=== PATIENT | female | born 1950 | race Caucasian/White ===

== ENCOUNTER 2016-11-24 15:26 | Inpatient (IN) ==
[2016-11-24] MEDS ORDERED: ASPIRIN 325 MG TABLET PO STA (16:01)
[2016-11-24] MEDS ORDERED: MORPHINE 2 MG/1 ML SYRINGE IV STA (16:01)
[2016-11-24] MEDS ORDERED: ONDANSETRON 4 MG/2 ML VIAL IV STA (16:01)
[2016-11-24] MEDS ORDERED: ALUM/MAG/SIMETH/LIDO VISC 1:1 30 ML BOTTLE PO STA (16:01)
[2016-11-24] MEDS ORDERED: NITROGLYCERIN 2% OINT 1 INCH/GM PACK TOP STA (16:01)
--- NOTE | 2016-11-24 16:04 | EKG Report ---
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
--- NOTE | 2016-11-24 16:05 | Emergency Department Note ---
Amador Jaime Hilary, am scribing for, and in the presence of, Richie Bolden MD 15:57. Yuan Jaime Charles R, MD, personally performed the services described in this documentation, ascribed by Sima English in my presence, and it is both accurate and complete [id number] . Arrival - Arrival Chief Complaint: Chest Pain ED Nursing Triage Note: pt started having co last night. pain going into jaw and arms. Mode of Arrival: Stretcher Limitations: No Limitations Source: Patient, RN Notes Reviewed Time Seen by Provider: 11/24/16 15:47 - History of Present Illness HPI Narrative: Pt is a 65 y/o female brought to the ED via EMS for c/o chest pain which onset 2 weeks ago. Pt states that the pain is intermittent and has been getting worse the past few days, she says it kept her up all night and caused her to not sleep well. Pt confirms chest pain that radiates up "through her arms" and leaves a pain in her arms, tired, fatigue, reflux and smokes but denies DM. No other complaints or problems stated in the ED. Onset (ago): week(s) Consistency: now resolved Quality: stabbing, other (Pressure) Date of Last Menstrual Period: menopause Review of System - Review of System 12 point system: reviewed and no additional remarkable complaints except as stated - Review of System Constitutional: Absent: fever Respiratory: Present: respiratory distress Cardiovascular: Present: chest pain, dyspnea on exertion Neurological: Present: other (fatigue) Medical,Surgical,& Family Hx - Medical History Cardio: History of: Hypertension Respiratory: History of: Asthma, COPD Gastrointestinal: History of: GERD - Social History Smoking Status: Smoker, status unknown Frequency of Alcohol Use: None Type of Drug Use: None Exam Vital Signs: Vital Signs Temperature 97.6 F 11/24/16 15:32 Pulse Rate 95 H 11/24/16 15:32 Respiratory Rate 18 11/24/16 15:32 Blood Pressure 115/78 11/24/16 15:32 O2 Sat by Pulse Oximetry 97 11/24/16 15:32 - General General appearance: alert, in no apparent distress - Head Head exam: Present: atraumatic, normocephalic - Eye Eye exam: Present: normal appearance, PERRL, EOMI - ENT ENT exam: Present: mucous membranes moist, TM's normal bilaterally. Absent: mucous membranes dry - Neck Neck exam: Present: full ROM, trachea midline. Absent: tenderness - Chest Chest inspection: Present: symmetric chest wall rise. Absent: tenderness - Respiratory Respiratory exam: Present: rhonchi - Cardiovascular Cardiovascular exam: Present: normal rhythm, clicks (2/6 systalic injection) - Abdominal Exam Abdominal exam: Present: soft. Absent: distention - Extremities Exam Extremities exam: Present: full ROM, pedal edema. Absent: tenderness - Back Exam Back exam: Present: full ROM. Absent: tenderness - Neurological Exam Neurological exam: Present: alert, oriented X3, CN II-XII intact. Absent: motor sensory deficit - Psychiatric Psychiatric exam: Present: normal affect, normal mood - Skin Skin exam: Present: warm, dry, intact, normal color. Absent: rash Course - Consultations Consultation #1: Hospitalist will admit patient Time: 16:04 Results - Labs Lab Results: I have reviewed the patients labs Labs: Labs from previous facility reviewed Disposition Clinical Impression: Chest pain, Borderline elevated troponin Case discussed with: patient Disposition: Still a Patient Condition: Stable Time of Disposition: 16:05
--- NOTE | 2016-11-24 16:15 | XRay Report ---
XR chest 1V portable Indication: Chest pain Comparison: Chest x-ray 11/24/2016 Technique: Portable AP chest was performed. Findings: The heart size appears within normal limits. Atherosclerotic calcification of the aortic knob appears stable. The mediastinal contour and hilar structures demonstrate no significant abnormalities. Lungs demonstrate nonspecific coarsened interstitium stable compared to previous study. Bones and soft tissues demonstrate no evidence of acute pathology. Postoperative changes from prior right subacromial decompression are suggested. Impression: 1. Nonspecific coarsened interstitial markings are stable compared to the comparison study performed earlier this morning. No active process is clearly demonstrated. 11/24/2016 4:11 PM PROCEDURE INTERPRETED AT [facility] DEPARTMENT OF RADIOLOGY Final Report Signed by: Dr. Hilton Narvaez
--- NOTE | 2016-11-24 16:42 | Hospitalist History & Physical ---
Assessment and Plan - Time spent with patient Time spent with patient: Greater than 30 minutes (1) Elevated troponin Status: Acute Assessment and plan: 65-year-old white female with history of COPD, hypertension, current everyday smoker transfer from [facility] with chest pain, abnormal EKG and elevated troponins. Patient is being admitted to the hospitalist service and Dr. Montano we will seen and examined patient. We will get a cardiology consult and serial troponins. Recheck an EKG in the morning. Monitor patient' s pain. Further recommendations to follow. Current Visit: Yes (2) COPD (chronic obstructive pulmonary disease) Status: Acute Assessment and plan: Patient is a current everyday smoker of a little more than 1 pack per day. Patient only takes Singulair for her COPD. She states her [employer] started her on an inhaler but is not sure what it is. She just got it filled and has not had a chance to start it yet. Current Visit: Yes (3) Sciatic nerve pain Status: Acute Assessment and plan: Patient has had sciatic nerve pain for over 2 weeks now. Her family doctor is treating her with muscle relaxers and Neurontin. Patient does not like the way these medicines make her feel. We will go ahead and hold these for now since patient is not complaining of any sciatic pain at this point in time. Current Visit: Yes (4) Tobacco abuse Status: Acute Assessment and plan: Patient is a current everyday smoker of over 1 pack per day. She has been doing this for over 30 years. Current Visit: Yes (5) Chest pain Status: Acute Assessment and plan: patient has had intermittent chest pain with radiation to the throat and arms that is increasing in severity and number. She does have an abnormal EKG with elevated troponins initially. She will be admitted for chest pain rule out. Cardiology will be consulted, serial enzymes and EKG in the morning. Current Visit: Yes History of Present Illness Chief complaint: chest pain History of present illness: Ms. Pope is a 65 year old female w history of COPD, 1ppd smoker x30y, HTN transferred from [facility] w CP and elevated troponin. pt states for the last 2 wks she has had intermittent chest pain and burning that radiates to her throat and out to both arms. she states the pain stays in her arms when tums will alleviate the chest burning. it was associated w some nausea but no vomiting. she denies MANSFIELD, blurred vision, dysphagia, SOB, abdominal pain, constipation, dysuria or LE edema. she has been treated for the last few wks for severe sciatica w neurontin and muscle relaxers that she thinks is really not helping. she thought the chest pain was from her gerd. it was worsening and becoming more frequent so she went to her [employer] who sent her to ED in [place]. her EKG from there shows mild ST elevation w tachycardia and her trop was 0.8. all her labs and studies at [facility] are pending. pts case was discussed w dr chairez the ED physician and dr montano the hospitalist and it was agreed for pt to be admitted in obs for chest pain rule out. 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 No tremulousness. Head: Normocephalic, atraumatic. Ears, Nose and Throat System: No evidence of Otitis or Mastoiditis. No epistaxis or discharge, poor dentition Eyes System: Pupils equal, round, and reactive. Extraocular muscles intact. Neck: Supple, without adenopathy, No jugular venous distention. No thyromegaly, neck mass, or prior surgery apparent. Respiratory System: Chest clear to auscultation. Cardiovascular System: Heart with regular rate and rhythm. No murmur. GI System: Abdomen soft, nontender. Normo active bowel sounds present. Musculoskeletal System: limbs with no pedal edema. Full distal pulses. Neurological System: No discernable sensory deficit. No aphasia Psychiatric System: Conversation is rational Results - Labs Lab Results: I have reviewed the past 24 hour labs (Labs from [facility] were reviewed) - EKG EKG shows: tachycardia (Mild ST elevation)
[2016-11-24] MEDS ORDERED: ONDANSETRON 4 MG/2 ML VIAL ONE (16:52)
[2016-11-24] MEDS ORDERED: ASPIRIN 325 MG TABLET ONE (16:52)
[2016-11-24] MEDS ORDERED: MORPHINE 2 MG/1 ML SYRINGE ONE (16:52)
[2016-11-24] MEDS ORDERED: NITROGLYCERIN 2% OINT 1 INCH/GM PACK TOP ONE (16:52)
[2016-11-24] MEDS ORDERED: MORPHINE 2 MG/1 ML SYRINGE IV PRN (16:53)
[2016-11-24] MEDS ORDERED: ONDANSETRON 4 MG/2 ML VIAL IV PRN (16:53)
[2016-11-24] MEDS ORDERED: DOCUSATE SODIUM 100 MG CAPSULE PO PRN (16:53)
[2016-11-24] MEDS ORDERED: ACETAMINOPHEN 325 MG TABLET PO PRN (16:53)
[2016-11-24] MEDS ORDERED: NICOTINE 21 MG/24 HR PATCH TRANSDERM PRN (16:53)
[2016-11-24] MEDS ORDERED: ALUM/MAG/SIMETH/LIDO VISC 1:1 30 ML BOTTLE PO ONE (16:53)
[2016-11-24] MEDS ORDERED: ZALEPLON 5 MG CAPSULE PO PRN (16:53)
[2016-11-24] MEDS ORDERED: guaiFENesin/DM ER 600-30 MG TABLET PO PRN (16:53)
[2016-11-24] MEDS ORDERED: diphenhydrAMINE CAP 25 MG CAPSULE PO PRN (16:53)
[2016-11-24 17:31] LABS: Basophils % 0.2 % (0.0-0.8); Eosinophils # 0.1 10*3/uL (0.0-0.87); Eosinophils % 1.2 % (0.00-10.9); Hematocrit 39.3 VOL% (35.7-47.0); Hemoglobin 13.1 GM/DL (12.0-16.0); Immature Granulocytes % 0.4 %; Immature Granulocytes Absolute 0.03 #; Lymphocytes # 1.4 10*3/uL (1.4-4.0); Mean Corpuscular HGB Conc 33.3 GM/DL (32-36); Mean Corpuscular Hemoglobin 31 PG (27-34); Monocytes # 0.6 10*3/uL (0.11-0.8); Monocytes % 7.7 % (1.7-12.7); Neutrophils % 73.5 % (38.7-73.9); Platelet Count 109 T/CUMM (130-400); Red Blood Count 4.18 MC/CUMM (3.8-5.5); Red Cell Distribution Width 13.4 % (9.3-17.3); White Blood Count 8.2 T/CUMM (4-12)
[2016-11-24 17:45] LABS: INR 1.2; PT Patient Result 13.1 SECS
[2016-11-24 17:51] LABS: Albumin 3.9 G/DL (3.4-5.0); Bilirubin,Total 1.9 MG/DL (0.2-1.0); Calcium 9.2 MG/DL (8.5-10.1); Magnesium 2.2 MG/DL (1.8-2.4); Osmolality,Calculated 278.4 MOS/KG (273-304); Potassium 3.4 MMOL/L (3.5-5.1); Risk Ratio 4.33; Total Protein 7.4 G/DL (6.4-8.3); VLDL CHOLESTEROL 23.2 MG/DL
[2016-11-24] MEDS: SODIUM CHLORIDE 0.9% 1,000 ML IV SCH (18:57)
[2016-11-24] MEDS: PANTOPRAZOLE 40 MG TABLET PO SCH (18:57)
[2016-11-24] MEDS ORDERED: ENOXAPARIN 40 MG/0.4 ML SYRINGE SUBCUT SCH (21:00)
[2016-11-24] MEDS: MONTELUKAST 10 MG TABLET PO SCH (21:37)
[2016-11-25] MEDS: SODIUM CHLORIDE 0.9% 1,000 ML IV SCH (02:43)
[2016-11-25 04:49] LABS: Basophils % 0.4 % (0.0-0.8); Eosinophils # 0.2 10*3/uL (0.0-0.87); Eosinophils % 3.1 % (0.00-10.9); Hematocrit 36.3 VOL% (35.7-47.0); Hemoglobin 11.7 GM/DL (12.0-16.0); Immature Granulocytes % 0.6 %; Immature Granulocytes Absolute 0.03 #; Lymphocytes # 1.2 10*3/uL (1.4-4.0); Lymphocytes % 23.8 % (21.3-54.2); Mean Corpuscular HGB Conc 32.2 GM/DL (32-36); Mean Corpuscular Hemoglobin 30 PG (27-34); Mean Platelet Volume 12.6 FL (9.6-12.0); Monocytes # 0.5 10*3/uL (0.11-0.8); Monocytes % 9.8 % (1.7-12.7); Neutrophils # 3.3 10*3/uL (1.4-7.4); Neutrophils % 62.3 % (38.7-73.9); Platelet Count 96 T/CUMM (130-400); Red Blood Count 3.86 MC/CUMM (3.8-5.5); Red Cell Distribution Width 13.5 % (9.3-17.3); White Blood Count 5.2 T/CUMM (4-12)
[2016-11-25 05:21] LABS: Band Neutrophils 1 % (0-10); Eosinophils 2 % (0-10); Lymphocytes 25 % (20-55); Segmented Neutrophils 67 % (50-85); Total Cells Counted 100
[2016-11-25 05:22] LABS: Hypochromasia Slight; Platelet Estimate Decreased
[2016-11-25 05:23] LABS: Calcium 8.5 MG/DL (8.5-10.1); Magnesium 2.2 MG/DL (1.8-2.4); Osmolality,Calculated 287.7 MOS/KG (273-304); Potassium 3.8 MMOL/L (3.5-5.1)
--- NOTE | 2016-11-25 06:59 | EKG Report ---
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
[2016-11-25] MEDS ORDERED: ASPIRIN EC 325 MG TABLET PO SCH (09:00)
--- NOTE | 2016-11-25 09:25 | Cardiology Consult Note ---
<Aleja Mcrae E - Last Filed: 11/25/16 09:22> Assessment and Plan - Time spent with patient Time spent with patient: Greater than 30 minutes (Due to assessment, plan, and documentation) Time spent discussing smoking cessation with patient: 3 to 10 minutes (1) Chest pain Status: Acute Assessment and plan: Her pain is suspicious for angina but also has GI component. Given her risk factors and presentation, after discussing with Dr. Draper, we will ask Dr. Martin to perform left heart catheterization for further evaluation. Current Visit: Yes (2) Elevated troponin Status: Acute Assessment and plan: Peak troponin 1.5 with elevated CK-MB of 12.8 at [facility]. I have discussed her with Dr. Draper and we will hold her NPO and ask Dr. Martin to perform left heart catheterization. Current Visit: Yes (3) Family history of premature CAD Status: Chronic Assessment and plan: She has a strong family history of CAD including a mother who had an UT at age 48 and after CABG, dad had an UT at age 65 required CABG, and a little brother who had an UT in his 40s. Current Visit: Yes (4) Hypertension Status: Chronic Assessment and plan: Currently well controlled. We will continue to monitor and adjust as needed. Current Visit: Yes (5) GERD (gastroesophageal reflux disease) Status: Chronic Assessment and plan: Continue Protonix. Current Visit: Yes (6) Asthma Status: Chronic Assessment and plan: We have started her on Xopenex breathing treatments. Current Visit: Yes (7) Diverticulosis Status: Chronic Assessment and plan: Has previously been seen by GI Dr. Prasad in [place], [place]. reports she has recently undergone 2 colonoscopies to remove precancerous polyps. Current Visit: Yes (8) COPD (chronic obstructive pulmonary disease) Status: Chronic Assessment and plan: Currently has audible wheezes. We will start her on Xopenex breathing treatments every 4 hours. IV fluids have been discontinued at this time. Current Visit: Yes (9) Sciatic nerve pain Status: Acute Assessment and plan: Denies any sciatic pain presently. Current Visit: Yes (10) Tobacco abuse Status: Chronic Assessment and plan: Has moved 1-2 packs per day for the last 46 years. Reports she has previously tried oral medications which "made her crazy." Patient is agreeable to trying nicotine patches to help her quit smoking. 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 Pope is a 65 year old female with a history of hypertension, COPD , asthma, gastroesophageal reflux disease, diverticulitis, tobacco use. She has risk factors significant for: Hypertension, family history of premature coronary artery disease, tobacco abuse, sedentary lifestyle. She is a 1-2 pack per day smoker and has been smoking for the last 4-6 years. She tells me she has tried oral medications to stop smoking in the past but these "made her crazy." She is agreeable to using nicotine patches to try and cut back smoking. She has a strong family history of CAD including a mother who had an UT at age 48 and after CABG, dad had an UT at age 65 required CABG, and a little brother who had an UT in his 40s. She is also recently been undergoing treatment for sciatic pain but tells me the medication she was taking for this gave her GI upset and indigestion. She was transferred to our facility yesterday from [facility] after presenting with chest pain ongoing for the last 2 weeks. She was found to have an elevated troponin of 0.817 with a CK-MB of 12.8 at [facility]. Upon arrival to our facility, her troponin was noted to be 1.540. EKG shows normal sinus rhythm with nonspecific ST-T-wave abnormality. She reports she has had pain that has felt like acid reflux the last couple weeks. She reports she has had neck and jaw pain associated with this. She describes this as a burning sensation. She reports it is immediately relieved by Tums. However, she has also noticed a pressure in her chest that remains even after her reflux pain has gone. She reports this pain is occasionally a 5 out of 10 and occasionally 10 out of 10. She does have some associated shortness of breath, nausea, and palpitations when she experiences this pain. She can identify no exacerbating or alleviating factors with chest pressure. She tells me it does not wax or wane and usually lasts a couple of hours at a time. She tells me she has also had some bilateral shoulder blade pain that she has noticed off and on for the last couple of months. She denies any diaphoresis, vomiting, dizziness, lightheadedness, syncope. She also complains of being easily fatigued during the past several weeks and reports her wheezing has worsened lately. 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 She reports she has had at least 2 stress tests in the past and one heart catheterization. She does not think she required any balloons or stents. Her heart cath was done at [facility] in [place] over 10 years ago. She also reports a long history of melena and tells me she has recently had 2 colonoscopies to remove precancerous polyps by a Dr. Prasad and [place]. Dr. Draper to follow with further plan and addendum. CC: Nuvia Petty MD - Home Medications and Allergies Home Medications: Home Medications Medication Instructions Recorded Confirmed Type Gabapentin 100 mg PO DAILY 11/24/16 11/24/16 History Montelukast Tab [Singulair Tab] 10 mg PO BEDTIME 11/24/16 11/24/16 History Omeprazole [Prilosec] 20 mg PO DAILY 11/24/16 11/24/16 History dilTIAZem HCl [Diltiazem ER (24 240 mg PO DAILY 11/24/16 11/24/16 History hr)] Allergies/Adverse Reactions: Allergies Allergy/AdvReac Type Severity Reaction Status Date / Time No Known Allergies Allergy Verified 11/24/16 18:04 Review of systems: - Constitutional: Present: fatigue, As per HPI. Absent: anorexia, chills, daytime sleepiness, excessive sweating, fever(s), frequent falls, headache(s), increased appetite, lethargy, malaise, night sweats, stops breathing during sleep, weakness, weight gain, weight loss. - EENT Eyes: Present: As per HPI. Absent: blurry vision, diplopia, loss of vision Ears: Present: As per HPI. Absent: decreased hearing, ear discharge, ear pain Nose, mouth and throat: Present: neck pain, As per HPI. Absent: dysphagia, epistaxis, headache(s), hoarseness, lip swelling, nasal congestion, neck mass, sinus pressure, sore throat, throat swelling, tongue swelling, vertigo - Cardiovascular: Present: chest pain at rest, dyspnea, radiating jaw, neck or arm pain, palpitations, as per HPI. Absent: chest pain with activity, dyspnea on exertion, edema, claudication, diaphoresis, lightheadedness, orthopnea, PND - Respiratory: Present: dyspnea, wheezing, as per HPI. Absent: dyspnea on exertion, cough, hemoptysis, snoring, pain on inspiration - Gastrointestinal: Present: constipation, diarrhea, heartburn, melena, nausea, As per HPI. Absent: abdominal pain, bloating, change in bowel habits, hematemesis, hematochezia, loose stools, vomiting - Genitourinary: Present: As per HPI. Absent: difficulty urinating, dysuria, flank pain, hematuria, nocturia, urinary frequency, urinary incontinence - Musculoskeletal: Present: Sciatic pain, as per HPI. Absent: arthralgias, back pain, joint swelling, limited range of motion, muscle cramps, muscle weakness, myalgias - Neurological: Present: As per HPI. Absent: abnormal gait, abnormal speech, behavioral changes, confusion, convulsions, disequilibrium, dizziness, focal weakness, frequent falls, headache(s), memory loss, numbness, paresthesias, radicular pain, syncope, tremor(s) - Psychiatric: Present: As per HPI. Absent: anxiety, confusion, depression, panic attacks - Endocrine: Present: fatigue, As per HPI. Absent: cold intolerance, heat intolerance, polydipsia, polyphagia - Hematologic/Lymphatic: Present: As per HPI. Absent: easy bleeding, easy bruising, lymphadenopathy Medical,Surgical,& Family Hx - Medical History Cardio: History of: Hypertension HEENT: History of: Ear Problem Respiratory: History of: Asthma, COPD Renal: No history of: Renal Problems Gastrointestinal: History of: Diverticulitis/ Diverticulosis, GERD, Polyps, GI Problems Musculoskeletal: History of: Back/Neck Problems (back surgery), Musculoskeletal Problems (Sciatic pain) Other: History of: Cancer ([place]) - Surgical History Cardiac Surgeries: Patient Denies: Cardiac Catheterization, Cardiac Surgery Thoracic Surgeries: Patient denies;: Organ Transplant Neurologic Surgeries: Patient denies: Neurologic Surgery HEENT Surgeries: Patient denies: Eye Surgery, Tonsilectomy & Adenoidectomy Abdominal Surgeries: Surgical HX of: Abdominal Surgery - Family History Family History: Reports;: Family Cancer (colon cancer- dad), Family Diabetes, Family Heart Disease, Family Hypertension (mother, father, brother), Family Stroke (grandmother) Denies;: Family Psychiatric Problems, Additional Family History - Social History Smoking Status: Current every day smoker Have you smoked in the last 12 months: Yes Time spent discussing smoking cessation with patient: 3 to 10 minutes Frequency of Alcohol Use: None Type of Drug Use: None Marital Status: Single Lives With:: Alone Functional capacity: independent ambulation Physical Examination Vital Signs Temp Pulse Resp BP Pulse Ox 97.6 F 95 H 18 115/78 97 11/24/16 15:32 11/24/16 15:32 11/24/16 15:32 11/24/16 15:32 11/24/16 15:32 Other: General appearance: Pleasant and cooperative. Normal weight, no acute distress. - Head Head exam: Present: normal inspection, normocephalic, atraumatic. Absent: hematoma, laceration - Eye Eye exam: Present: EOMI. Absent: conjunctival injection, nystagmus, periorbital swelling, scleral icterus, laceration to eyelids Pupils: Present: PERRL. Absent: constricted, dilated, fixed, irregular, unequal - ENT ENT exam: Present: normal exam, normal external ear exam - Neck Neck exam: Present: normal inspection. Absent: lymphadenopathy, meningismus, tenderness, thyromegaly - Respiratory Respiratory exam: Present: Audible wheezing with bibasilar crackles posteriorly. Absent: accessory muscle use, chest wall tenderness - Cardiovascular Cardiovascular exam: Present: regular rate and rhythm. Absent: carotid bruit, gallop, JVD, rubs, murmur - GI/Abdominal GI/Abdominal exam: Present: normal bowel sounds, soft. Absent: distended, firm , guarding, hernia, mass, tenderness, rebound. - Extremities Exam Extremities exam: Present: normal inspection, normal capillary refill. Upper extremity pulses 2+. Lower extremity pulses 2+. Absent: calf tenderness, edema - Back Exam Back exam: Present: normal inspection. Absent: muscle spasm, vertebral tenderness - Neurological Exam Neurological exam: Present: alert, oriented X3, grossly intact without resting or essential tremor - Psychiatric Psychiatric exam: Present: normal affect, normal mood - Skin Skin exam: Present: normal color, warm, dry, intact. Absent: cyanosis, diaphoretic, rash, urticaria Result/EKG - Labs CBC & BMP: 11/25/16 03:59 11/25/16 03:59 Lab Results: I have reviewed the past 24 hour labs Labs: Laboratory Results - last 24 hr 11/24/16 11/24/16 11/24/16 17:21 17:21 17:21 WBC RBC Hgb Hct MCV MCH MCHC RDW Plt Count MPV Neut % (Auto) Lymph % (Auto) Fountain % (Auto) Eos % (Auto) Baso % (Auto) Neut # (Auto) Lymph # (Auto) Fountain # (Auto) Eos # (Auto) Baso # (Auto) Total Counted Immature Gran % Nucleated RBC % Immature Gran # Segmented Neutrophils Band Neutrophils Lymphocytes Monocytes Eosinophils Nucleated RBCs # Platelet Estimate Hypochromasia INR PT Patient/Control Mix D-Dimer, Quantitative <= 0.5 Sodium 140 Potassium 3.4 L Chloride 106 Carbon Dioxide 25 Anion Gap 12.4 BUN 11 Creatinine 0.80 GFR Calculation 79 BUN/Creatinine Ratio 13.00 Glucose 109 H Calculated Osmolality 278.4 Calcium 9.2 Magnesium 2.2 Total Bilirubin 1.90 H AST 30 ALT 17 Alkaline Phosphatase 114 Troponin I B-Natriuretic Peptide 822 H Total Protein 7.4 Albumin 3.9 Globulin 3.5 Albumin/Globulin Ratio 1.1 Triglycerides 116 Cholesterol 169 LDL Cholesterol 123.0 VLDL Cholesterol 23.2 HDL Cholesterol 39 L Heart Disease Risk Ratio 4.33 Lipase 78.0 11/24/16 11/24/16 11/24/16 17:21 17:21 17:21 WBC 8.2 RBC 4.18 Hgb 13.1 Hct 39.3 MCV 94.0 MCH 31 MCHC 33.3 RDW 13.4 Plt Count 109 L MPV 12.0 Neut % (Auto) 73.5 Lymph % (Auto) 17.0 L Fountain % (Auto) 7.7 Eos % (Auto) 1.2 Baso % (Auto) 0.2 Neut # (Auto) 6.0 Lymph # (Auto) 1.4 Fountain # (Auto) 0.6 Eos # (Auto) 0.1 Baso # (Auto) 0.0 Total Counted Immature Gran % 0.4 Nucleated RBC % 0.0 Immature Gran # 0.03 Segmented Neutrophils Band Neutrophils Lymphocytes Monocytes Eosinophils Nucleated RBCs # 0.00 Platelet Estimate Hypochromasia INR 1.2 PT Patient/Control Mix 13.1 D-Dimer, Quantitative Sodium Potassium Chloride Carbon Dioxide Anion Gap BUN Creatinine GFR Calculation BUN/Creatinine Ratio Glucose Calculated Osmolality Calcium Magnesium Total Bilirubin AST ALT Alkaline Phosphatase Troponin I 1.540 H B-Natriuretic Peptide Total Protein Albumin Globulin Albumin/Globulin Ratio Triglycerides Cholesterol LDL Cholesterol VLDL Cholesterol HDL Cholesterol Heart Disease Risk Ratio Lipase 11/24/16 11/24/16 11/25/16 21:06 23:49 03:59 WBC 5.2 D RBC 3.86 Hgb 11.7 L Hct 36.3 MCV 94.0 MCH 30 MCHC 32.2 RDW 13.5 Plt Count 96 L MPV 12.6 H Neut % (Auto) 62.3 Lymph % (Auto) 23.8 Fountain % (Auto) 9.8 Eos % (Auto) 3.1 Baso % (Auto) 0.4 Neut # (Auto) 3.3 Lymph # (Auto) 1.2 L Fountain # (Auto) 0.5 Eos # (Auto) 0.2 Baso # (Auto) 0.0 Total Counted 100 Immature Gran % 0.6 Nucleated RBC % 0.0 Immature Gran # 0.03 Segmented Neutrophils 67 Band Neutrophils 1 Lymphocytes 25 Monocytes 5 Eosinophils 2 Nucleated RBCs # 0.00 Platelet Estimate Decreased Hypochromasia Slight INR PT Patient/Control Mix D-Dimer, Quantitative Sodium Potassium Chloride Carbon Dioxide Anion Gap BUN Creatinine GFR Calculation BUN/Creatinine Ratio Glucose Calculated Osmolality Calcium Magnesium Total Bilirubin AST ALT Alkaline Phosphatase Troponin I 0.961 H D 0.954 H B-Natriuretic Peptide Total Protein Albumin Globulin Albumin/Globulin Ratio Triglycerides Cholesterol LDL Cholesterol VLDL Cholesterol HDL Cholesterol Heart Disease Risk Ratio Lipase 11/25/16 03:59 WBC RBC Hgb Hct MCV MCH MCHC RDW Plt Count MPV Neut % (Auto) Lymph % (Auto) Fountain % (Auto) Eos % (Auto) Baso % (Auto) Neut # (Auto) Lymph # (Auto) Fountain # (Auto) Eos # (Auto) Baso # (Auto) Total Counted Immature Gran % Nucleated RBC % Immature Gran # Segmented Neutrophils Band Neutrophils Lymphocytes Monocytes Eosinophils Nucleated RBCs # Platelet Estimate Hypochromasia INR PT Patient/Control Mix D-Dimer, Quantitative Sodium 145 Potassium 3.8 Chloride 110 H Carbon Dioxide 24 Anion Gap 14.8 BUN 13 Creatinine 0.70 GFR Calculation 93 BUN/Creatinine Ratio 18.00 Glucose 104 Calculated Osmolality 287.7 Calcium 8.5 Magnesium 2.2 Total Bilirubin AST ALT Alkaline Phosphatase Troponin I B-Natriuretic Peptide Total Protein Albumin Globulin Albumin/Globulin Ratio Triglycerides Cholesterol LDL Cholesterol VLDL Cholesterol HDL Cholesterol Heart Disease Risk Ratio Lipase - EKG EKG results: interpreted by me, sinus rhythm (with ST-T wave abnormality) <Andrei Draper - Last Filed: 11/25/16 10:05> History of Present Illness - Consult Narrative History of present illness: Patient is personally interviewed and examined by me and chart reviewed. I discussed the case with Bryan Mcrae NP. I agree with the history and examination as well as assessment. In review and in addition Ms. Pope is a 65 year old female he is having anginal type symptomatology with elevated troponin. Her ECG does not reveal acute ischemic changes. She has multiple risk factors for coronary artery disease. She is a heavy smoker and is has shortness of breath. She is wheezing some with a few crackles. Her BNP level was elevated. I think her primary focus at this time must be her cardiac ischemic issues. She has sinus tachycardia and is noted wheezing on exam which I think indicates that she has underlying lung disease. Cannot rule out some element of heart failure with elevated BNP. I think our first approach must be to cardiac catheterization on discussed this procedure with the patient being indications as well as how the procedure be carried out in the risk. I discussed cardiac catheterization and percutaneous coronary intervention with the patient and available family. I reviewed with them the indications for the procedure and the basis of how the procedure would be carried out. I also reviewed with them the risk of the procedure which include but not necessarily limited to access site bleeding, bruising, pain, swelling or vascular injury that may require emergency vascular surgery, blood transfusion, or thrombin injection. Also discussed the possibility of stroke, myocardial infarction, arrhythmia which may require electrocardioversion, and the possibility of dye reaction that would require medical therapy. Also discussed the possibility of coronary artery injury, ruptured, closure or perforation that may require emergency bypass surgery. We also discussed the possibility of from a major complication. They voice understanding and agree to proceed. We will notify Dr. Duran who is interventional is this week. We'll also start the patient also nebulized therapies with Xopenex and avoid those meds that may exacerbate her heart rates. She has had some sinus tachycardia. Beta specific also start the patient on a beta specific beta jacob. CC: Nuvia Petty MD Physical Examination Vital Signs Temp Pulse Resp BP Pulse Ox 97.6 F 95 H 18 115/78 97 11/24/16 15:32 11/24/16 15:32 11/24/16 15:32 11/24/16 15:32 11/24/16 15:32 Result/EKG - Labs CBC & BMP: 11/25/16 03:59 11/25/16 03:59 Labs: Laboratory Results - last 24 hr 11/24/16 11/24/16 11/24/16 17:21 17:21 17:21 WBC RBC Hgb Hct MCV MCH MCHC RDW Plt Count MPV Neut % (Auto) Lymph % (Auto) Fountain % (Auto) Eos % (Auto) Baso % (Auto) Neut # (Auto) Lymph # (Auto) Fountain # (Auto) Eos # (Auto) Baso # (Auto) Total Counted Immature Gran % Nucleated RBC % Immature Gran # Segmented Neutrophils Band Neutrophils Lymphocytes Monocytes Eosinophils Nucleated RBCs # Platelet Estimate Hypochromasia INR PT Patient/Control Mix D-Dimer, Quantitative <= 0.5 Sodium 140 Potassium 3.4 L Chloride 106 Carbon Dioxide 25 Anion Gap 12.4 BUN 11 Creatinine 0.80 GFR Calculation 79 BUN/Creatinine Ratio 13.00 Glucose 109 H Calculated Osmolality 278.4 Calcium 9.2 Magnesium 2.2 Total Bilirubin 1.90 H AST 30 ALT 17 Alkaline Phosphatase 114 Troponin I B-Natriuretic Peptide 822 H Total Protein 7.4 Albumin 3.9 Globulin 3.5 Albumin/Globulin Ratio 1.1 Triglycerides 116 Cholesterol 169 LDL Cholesterol 123.0 VLDL Cholesterol 23.2 HDL Cholesterol 39 L Heart Disease Risk Ratio 4.33 Lipase 78.0 11/24/16 11/24/16 11/24/16 17:21 17:21 17:21 WBC 8.2 RBC 4.18 Hgb 13.1 Hct 39.3 MCV 94.0 MCH 31 MCHC 33.3 RDW 13.4 Plt Count 109 L MPV 12.0 Neut % (Auto) 73.5 Lymph % (Auto) 17.0 L Fountain % (Auto) 7.7 Eos % (Auto) 1.2 Baso % (Auto) 0.2 Neut # (Auto) 6.0 Lymph # (Auto) 1.4 Fountain # (Auto) 0.6 Eos # (Auto) 0.1 Baso # (Auto) 0.0 Total Counted Immature Gran % 0.4 Nucleated RBC % 0.0 Immature Gran # 0.03 Segmented Neutrophils Band Neutrophils Lymphocytes Monocytes Eosinophils Nucleated RBCs # 0.00 Platelet Estimate Hypochromasia INR 1.2 PT Patient/Control Mix 13.1 D-Dimer, Quantitative Sodium Potassium Chloride Carbon Dioxide Anion Gap BUN Creatinine GFR Calculation BUN/Creatinine Ratio Glucose Calculated Osmolality Calcium Magnesium Total Bilirubin AST ALT Alkaline Phosphatase Troponin I 1.540 H B-Natriuretic Peptide Total Protein Albumin Globulin Albumin/Globulin Ratio Triglycerides Cholesterol LDL Cholesterol VLDL Cholesterol HDL Cholesterol Heart Disease Risk Ratio Lipase 11/24/16 11/24/16 11/25/16 21:06 23:49 03:59 WBC 5.2 D RBC 3.86 Hgb 11.7 L Hct 36.3 MCV 94.0 MCH 30 MCHC 32.2 RDW 13.5 Plt Count 96 L MPV 12.6 H Neut % (Auto) 62.3 Lymph % (Auto) 23.8 Fountain % (Auto) 9.8 Eos % (Auto) 3.1 Baso % (Auto) 0.4 Neut # (Auto) 3.3 Lymph # (Auto) 1.2 L [place]ountain # (Auto) 0.5 Eos # (Auto) 0.2 Baso # (Auto) 0.0 Total Counted 100 Immature Gran % 0.6 Nucleated RBC % 0.0 Immature Gran # 0.03 Segmented Neutrophils 67 Band Neutrophils 1 Lymphocytes 25 Monocytes 5 Eosinophils 2 Nucleated RBCs # 0.00 Platelet Estimate Decreased Hypochromasia Slight INR PT Patient/Control Mix D-Dimer, Quantitative Sodium Potassium Chloride Carbon Dioxide Anion Gap BUN Creatinine GFR Calculation BUN/Creatinine Ratio Glucose Calculated Osmolality Calcium Magnesium Total Bilirubin AST ALT Alkaline Phosphatase Troponin I 0.961 H D 0.954 H B-Natriuretic Peptide Total Protein Albumin Globulin Albumin/Globulin Ratio Triglycerides Cholesterol LDL Cholesterol VLDL Cholesterol HDL Cholesterol Heart Disease Risk Ratio Lipase 11/25/16 03:59 WBC RBC Hgb Hct MCV MCH MCHC RDW Plt Count MPV Neut % (Auto) Lymph % (Auto) Fountain % (Auto) Eos % (Auto) Baso % (Auto) Neut # (Auto) Lymph # (Auto) Fountain # (Auto) Eos # (Auto) Baso # (Auto) Total Counted Immature Gran % Nucleated RBC % Immature Gran # Segmented Neutrophils Band Neutrophils Lymphocytes Monocytes Eosinophils Nucleated RBCs # Platelet Estimate Hypochromasia INR PT Patient/Control Mix D-Dimer, Quantitative Sodium 145 Potassium 3.8 Chloride 110 H Carbon Dioxide 24 Anion Gap 14.8 BUN 13 Creatinine 0.70 GFR Calculation 93 BUN/Creatinine Ratio 18.00 Glucose 104 Calculated Osmolality 287.7 Calcium 8.5 Magnesium 2.2 Total Bilirubin AST ALT Alkaline Phosphatase Troponin I B-Natriuretic Peptide Total Protein Albumin Globulin Albumin/Globulin Ratio Triglycerides Cholesterol LDL Cholesterol VLDL Cholesterol HDL Cholesterol Heart Disease Risk Ratio Lipase
[2016-11-25] MEDS ORDERED: POTASSIUM CHLORIDE RIDER 10 MEQ in PREMIX 1 EACH IV PRN (10:00)
[2016-11-25] MEDS ORDERED: diphenhydrAMINE CAP 25 MG CAPSULE PO ONE (10:00)
[2016-11-25] MEDS ORDERED: MAGNESIUM SULF RIDER 2 GM in PREMIX 1 EACH IV PRN (10:00)
[2016-11-25] MEDS ORDERED: METOPROLOL TARTRATE 50 MG TABLET PO ONE (10:08)
--- NOTE | 2016-11-25 10:32 | Hospitalist Progress Note ---
Exam - Constitutional Vitals: Period Temp Pulse Resp BP Sys/Yeung Pulse Ox Last 24 Hr 97.4 F-98.0 F 87-114 18-22 107-150/67-95 93-963 Results - Labs CBC & BMP: 11/25/16 03:59 11/25/16 03:59
[2016-11-25] MEDS ORDERED: DIAZEPAM 5 MG TABLET ONE (10:35)
[2016-11-25] MEDS: DILTIAZEM CD 240 MG CAPSULE PO SCH (10:42)
[2016-11-25] MEDS: PANTOPRAZOLE 40 MG TABLET PO SCH (10:42)
[2016-11-25] MEDS ORDERED: DIAZEPAM 5 MG TABLET PO ONE (10:43)
--- NOTE | 2016-11-25 10:43 | Event Note ---
Mrs. Pope is a 65-year-old status post non-STEMI now chest pain-free with improvement in her shortness of breath. We are offering her heart catheterization, and she prefers the right radial access and wishes to proceed today. I discussed with the patient the risks and benefits of heart catheterization including but not limited to: , stroke, heart attack, vascular damage, reaction to medicine or dye, bleeding requiring blood transfusion, failure the procedure, possible need for planned or emergency heart surgery. I have answered all the patient's questions and the patient is agreeable to proceed.
[2016-11-25] MEDS ORDERED: ALBUTEROL 1.25 MG/3 ML NEB RESP TX SCH (11:00)
[2016-11-25] MEDS ORDERED: NITROGLYCERIN DRIP 50 MG/250 ML BOTTLE IV ONE (11:13)
[2016-11-25] MEDS ORDERED: LIDOCAINE 1% 20 ML VIAL ONE (11:13)
[2016-11-25] MEDS ORDERED: HYDROmorphone 2 MG/1 ML VIAL ONE (11:13)
[2016-11-25] MEDS ORDERED: MIDAZOLAM 2 MG/2 ML VIAL ONE (11:13)
[2016-11-25] MEDS ORDERED: VERAPAMIL 5 MG/2 ML VIAL ONE (11:13)
[2016-11-25] MEDS ORDERED: ENOXAPARIN 60 MG/0.6 ML SYRINGE ONE (11:29)
[2016-11-25] MEDS ORDERED: TICAGRELOR 90 MG TABLET ONE (11:42)
[2016-11-25] MEDS ORDERED: ENOXAPARIN 30 MG/0.3 ML SYRINGE ONE (11:45)
[2016-11-25] MEDS: LEVALBUTEROL 1.25 MG/3 ML NEB RESP TX SCH ×2 (11:49→15:40)
[2016-11-25] MEDS ORDERED: NALOXONE 0.4 MG/ML VIAL ONE (12:07)
[2016-11-25] MEDS ORDERED: FLUMAZENIL 0.5 MG/5 ML VIAL IV ONE (12:07)
--- NOTE | 2016-11-25 12:18 | Cardiac Catheterization ---
Date of Procedure:: 11/25/16 Post-op diagnosis: same Procedure: Procedures performed: 1. Coronary angiography 2. Angioplasty stenting of mid LAD disease which are living stent (2.75 x 20) 3. Right femoral arteriotomy closure with Angio-Seal device Brief summary: The cells a 65-year-old smoker who presented with non-STEMI and resolution of her chest pain. Description of procedure: After obtaining informed consent the patient transferred to the catheterization lab, and the right wrist was prepped and draped in the usual sterile fashion. Next a short 6 [place] sheath was placed in the right radial artery using the Seldinger technique after the patient received IV sedation, and local anesthetic. I then injected a vasodilator cocktail into the sheath. We gave her 0.5 mg per kilogram of intravenous Lovenox prior to the procedure. Next a 5 [place] TIG catheter was advancing his left coronary artery after which angiogram was performed in multiple views. This was then pulled back and manipulated the right coronary artery where angiographic were taken multiple views. The catheter was removed over a J- wire. Percutaneous coronary intervention was then performed as described below. After intervention, hemostasis was obtained with a TR band, using "patent hemostasis" technique. The patient was transferred from the catheterization lab in good condition. Percutaneous coronary intervention: I advanced a AL-1 guiding catheter through the sheath but it isn't met with resistance when I entered the radial artery. I presume that the vessel was too small and therefore removed. We then changed to right femoral access. A posterior short 6 [place] sheath in the right femoral artery using a modified Seldinger technique. Next the AL-1 guiding cath was advancing his left coronary artery with significant difficulty. However once was engaged appeared to provide reasonable support. Next a [place] wire was advanced to the distal LAD with only modest difficulty. After this a 2.5 x 15 noncompliant balloon was advanced across area of critical mid LAD disease was dilated to just below nominal pressures. It was then deflated and removed. Next a 2.75 x 20 Synergy drug eluting stent was advanced across area of disease was deployed at nominal pressures. The stent was well sized and had excellent result proximal was oversized distally with distal edge spasm. I therefore advanced the balloon several millimeters distal to the stent and performed a low pressure 3.5 atmosphere inflation for one half minutes. There was A very good result. The patient had received on an additional 0.2 millions per kilogram of IV Lovenox prior to procedure. She received aspirin this morning. We gave her Brilinta at the end of procedure due to elevated to swallow earlier because of sedation. Her sedation was reversed with Romazicon and Narcan to facilitate taking her Brilinta. Coronary angiography: Left main coronary artery normal for disease. Left anterior size of proximal average caliber tapers significantly distally just reaching the apex. It gives off an average caliber fairly long f diagonal branch just before the critical 99% mid LAD stenosis. The circumflex gives off an average caliber OM1 which 50% smooth proximal stenosis. There is a tiny OM 2 branch. There are 2 average caliber posterolaterals with mild 30% disease. The right coronary artery is occluded immediately after the takeoff of the fused acute marginal) high mid RCA occlusion) with slight filling by right to right collaterals, and more filling by [id number] collaterals of the right posterolateral. Impression: 1. Right dominant system 2. Coronary artery disease as described above including but not limited to: A. 99% mid LAD disease (likely culprit) cyst B. 50% proximal OM1 stenosis smooth and discrete) and after C. High mid RCA occlusion with filling of the distal vasculature by left-to- right collaterals more than right to right collaterals. 3. Status post angioplasty stenting of mid LAD lesion with drug-eluting stent of (2.75 x 20 Synergy) with very good result Recommendations and discussion: I believe that she did very good result regarding stenting Mrs. Pope's mid LAD critical lesion which appears to be the culprit. Her RCA is a reasonable candidate for intervention there may be a long involved intervention. We will see how she does clinically and consider staging escalator time. She will continue on baby aspirin Brilinta will be watched overnight. It is important that she avoid Squatting straining or lifting for the next one week. It will be imperative that she completely stop smoking. Anesthesia: minimal conscious sedation Surgeon / Physician: Anup Martin Telemetry Nurse: other Estimated blood loss: minimal Specimens: none sent Condition: stable Disposition: floor - Medications / Follow-up
--- NOTE | 2016-11-25 13:33 | EKG Report ---
Stationary ECG Study [facility] Test Date: 11/25/2016 1:32:27 PM Pat Name: TABITHA LIU Department: Room: 267 Gender: F Operative Supervisor: VALERI : 1950 Requested by: Anup Jerome Order Number: [id number] Reading MD: MARIALUISA MARSH Intervals [place] Rate: 79 P: 76 ME: 149 QRS: 86 QRSD: 94 T: 83 QT: 451 QTc: 485 Interpretive Statements SINUS RHYTHM NONSPECIFIC T-WAVE ABNORMALITY Electronically Signed On 11-30-16 11:20:01 CDT by MARIALUISA MARSH [email or web address]
--- NOTE | 2016-11-25 14:39 | XRay Report ---
XR chest 1V portable Indication: Shortness of breath Comparison: Chest x-ray 11/24/2016 Technique: Portable AP chest was performed. Findings: Since the comparison study, there has been marked interval worsening of bilateral interstitial and airspace opacities most prevalent within the central chest. Heart size is stable. Atherosclerotic calcification of the aortic knob is present. Bones and soft tissues appear stable. Impression: 1. Appearance of the chest is most compatible with development of pulmonary edema with both interstitial and alveolar components. 11/25/2016 2:36 PM PROCEDURE INTERPRETED AT [facility] DEPARTMENT OF RADIOLOGY Final Report Signed by: Dr. Hilton Narvaez
--- NOTE | 2016-11-25 14:42 | Hospitalist Progress Note ---
Assessment and Plan - Time spent with patient Time spent with patient: Greater than 30 minutes (1) Chest pain Status: Acute Assessment and plan: Elevated troponins. taken to canvas shop laborer, and stented. Current Visit: Yes (2) CAD (coronary artery disease) Status: Acute Assessment and plan: On dual antiplatelets. Continue B jacob, statin. See above. Current Visit: Yes (3) COPD (chronic obstructive pulmonary disease) Status: Chronic Assessment and plan: Does not appear to be in exacerbation. Continue BTx. Current Visit: Yes (4) Tobacco abuse Status: Chronic Assessment and plan: Nicotine patch. Current Visit: Yes Hospitalist: Subjective Interval history: Returned from canvas shop laborer today, stent placed. Saturations are in the upper 80s and low 90s. On 4L NC. Exam - Constitutional Vitals: Period Temp Pulse Resp BP Sys/Yeung Pulse Ox Last 24 Hr 18 General appearance: no acute distress - Head Head exam: Present: normocephalic, atraumatic - Eye Eye exam: Present: EOMI Pupils: Present: DEWAYNE - ENT ENT exam: Present: normal exam - Neck Neck exam: Present: normal inspection - Respiratory Respiratory exam: Present: clear to auscultation bilaterally. Absent: rhonchi, wheezes - Cardiovascular Cardiovascular exam: Present: regular rate and rhythm. Absent: gallop, rubs, systolic murmur - GI/Abdominal GI/Abdominal exam: Present: normal bowel sounds, soft. Absent: distended, firm , guarding, tenderness, rebound - Extremities Exam Extremities exam: Present: normal inspection. Absent: calf tenderness, edema Results - Labs CBC & BMP: 11/25/16 03:59 11/25/16 03:59 Lab Results: I have reviewed the past 24 hour labs Specialty Discharge - Follow Up or Referrals
[2016-11-25 15:07] LABS: CKMB % 15.4 %
[2016-11-25 15:14] LABS: Troponin I Only 0.66 NG/ML (0.00-0.045)
[2016-11-25] MEDS ORDERED: FUROSEMIDE 40 MG/4 ML VIAL IV ONE (16:37)
[2016-11-25] MEDS ORDERED: NALOXONE 0.4 MG/ML VIAL IV ONE (16:39)
[2016-11-25 17:39] LABS: ABG HCO3 20.8 MMOL/L (20-26); ABG Oxygen Saturation 83.7 % (95-100); ABG PCO2 39.9 MM HG (35-48); ABG PO2 51.2 MM HG (80-95); ABG TCO2 18.8 MMOL/L (23-27)
[2016-11-25 19:44] LABS: Apearance,Urine CLOUDY (Clear); Bacteria,Urine Occasional /HPF (Few); Bilirubin,Urine Negative (Negative); Blood, Urine Small mg/dL (Negative); Glucose,Urine (UA) Negative (Negative); Hyaline Casts,Urine 3 /LPF (0-3); Ketones,Urine Negative (Negative); Mucus,Urine Occasional /LPF (Occasional); Nitrite,Urine Negative (Negative); Protein,Urine Negative; RBC,Urine 9 /HPF (0-4); Squamous Epithelial Cell,Urine Moderate /HPF (0-10); Urine Color Yellow (Yellow); Urine Specific Gravity 1.024 (1.001-1.035); Urine Urobilinogen < 2.0 EU/DL (0.2-1.0); WBC,Urine 14 /HPF (0-6)
[2016-11-25] MEDS: ROSUVASTATIN 20 MG TABLET PO SCH (20:24)
[2016-11-25 20:36] LABS: Basophils % 0.2 % (0.0-0.8); Eosinophils % 0.2 % (0.00-10.9); Hemoglobin 13.4 GM/DL (12.0-16.0); Immature Granulocytes % 0.7 %; Immature Granulocytes Absolute 0.08 #; Lymphocytes # 0.8 10*3/uL (1.4-4.0); Lymphocytes % 7.2 % (21.3-54.2); Mean Corpuscular HGB Conc 31.2 GM/DL (32-36); Mean Corpuscular Hemoglobin 31 PG (27-34); Mean Corpuscular Volume 98.2 FL (87-102); Mean Platelet Volume 12.1 FL (9.6-12.0); Monocytes # 0.9 10*3/uL (0.11-0.8); Monocytes % 7.7 % (1.7-12.7); Neutrophils # 9.8 10*3/uL (1.4-7.4); Red Blood Count 4.38 MC/CUMM (3.8-5.5); Red Cell Distribution Width 13.8 % (9.3-17.3)
[2016-11-25 20:37] LABS: Platelet Count 124 T/CUMM (130-400); White Blood Count 11.7 T/CUMM (4-12)
[2016-11-25] MEDS: MONTELUKAST 10 MG TABLET PO SCH (21:53)
[2016-11-25] MEDS: TICAGRELOR 90 MG TABLET PO SCH (21:53)
[2016-11-25] MEDS: METOPROLOL TARTRATE 50 MG TABLET PO SCH (21:53)
[2016-11-25] MEDS: NITROGLYCERIN SL 0.4 MG TABLET SL PRN ×2 (21:53→21:59)
[2016-11-26 04:09] LABS: Basophils % 0.2 % (0.0-0.8); Eosinophils % 0.2 % (0.00-10.9); Hematocrit 42.9 VOL% (35.7-47.0); Hemoglobin 13.3 GM/DL (12.0-16.0); Immature Granulocytes % 0.5 %; Immature Granulocytes Absolute 0.07 #; Lymphocytes # 1.2 10*3/uL (1.4-4.0); Lymphocytes % 9.4 % (21.3-54.2); Mean Corpuscular Hemoglobin 30 PG (27-34); Mean Corpuscular Volume 97.5 FL (87-102); Mean Platelet Volume 12.5 FL (9.6-12.0); Monocytes % 7.8 % (1.7-12.7); Neutrophils # 10.7 10*3/uL (1.4-7.4); Neutrophils % 81.9 % (38.7-73.9); Platelet Count 135 T/CUMM (130-400); Red Cell Distribution Width 13.8 % (9.3-17.3); White Blood Count 13.1 T/CUMM (4-12)
[2016-11-26 04:34] LABS: Calcium 8.4 MG/DL (8.5-10.1); Magnesium 2.4 MG/DL (1.8-2.4); Osmolality,Calculated 284.1 MOS/KG (273-304); Potassium 3.8 MMOL/L (3.5-5.1)
[2016-11-26 04:39] LABS: CKMB % 18.7 %
[2016-11-26 04:42] LABS: Troponin I Only 0.904 NG/ML (0.00-0.045)
--- NOTE | 2016-11-26 07:46 | EKG Report ---
Stationary ECG Study [facility] Test Date: 11/26/2016 7:44:25 AM Pat Name: TABITHA LIU Department: Room: 128 Gender: F [place] Operator: VALERI : 1950 Requested by: Anup Jerome Order Number: [id number] Reading MD: MARIALUISA MARSH Intervals [place] Rate: 84 P: 75 SD: 154 QRS: 76 QRSD: 90 T: 124 QT: 383 QTc: 424 Interpretive Statements SINUS RHYTHM Electronically Signed On 11-30-16 11:45:23 CDT by MARIALUISA MARSH [email or web address]
[2016-11-26] MEDS: PANTOPRAZOLE 40 MG TABLET PO SCH (08:29)
[2016-11-26] MEDS: DILTIAZEM CD 240 MG CAPSULE PO SCH (08:29)
[2016-11-26] MEDS: ASPIRIN EC 81 MG TABLET PO SCH (08:29)
[2016-11-26] MEDS: METOPROLOL TARTRATE 50 MG TABLET PO SCH ×2 (08:29→20:41)
[2016-11-26] MEDS: TICAGRELOR 90 MG TABLET PO SCH ×2 (08:29→20:41)
[2016-11-26] MEDS: ROSUVASTATIN 20 MG TABLET PO SCH (08:29)
[2016-11-26] MEDS ORDERED: FUROSEMIDE 40 MG/4 ML VIAL IV ONE (09:06)
--- NOTE | 2016-11-26 09:41 | Hospitalist Progress Note ---
Assessment and Plan - Time spent with patient Time spent with patient: Greater than 30 minutes (1) SOB (shortness of breath) Status: Acute Assessment and plan: Echo pending. Will administer 40 mg IV Lasix due to crackles on exam. Obtain x -ray. Current Visit: Yes (2) Chest pain Status: Acute Assessment and plan: Status post PCI, stable Current Visit: Yes (3) CAD (coronary artery disease) Status: Acute Assessment and plan: On dual antiplatelets. Continue B jacob, statin. See above. Current Visit: Yes (4) COPD (chronic obstructive pulmonary disease) Status: Chronic Assessment and plan: Does not appear to be in exacerbation. Continue BTx. Current Visit: Yes (5) Tobacco abuse Status: Chronic Assessment and plan: Nicotine patch. Current Visit: Yes Hospitalist: Subjective Interval history: Reports shortness of breath which has not changed since admission. No other complaints. Exam - Constitutional Vitals: Period Temp Pulse Resp BP Sys/Yeung Pulse Ox Last 24 Hr 96.8 F-97.1 F 69-94 17-25 85-144/44-95 84-97 General appearance: normal weight, no acute distress - Head Head exam: Present: normal inspection, normocephalic, atraumatic - Eye Eye exam: Present: EOMI Pupils: Present: DEWAYNE - ENT ENT exam: Present: normal exam - Neck Neck exam: Present: normal inspection - Respiratory Respiratory exam: Present: other. Absent: rhonchi, wheezes - Cardiovascular Cardiovascular exam: Present: regular rate and rhythm. Absent: gallop, rubs, systolic murmur - GI/Abdominal GI/Abdominal exam: Present: normal bowel sounds, soft. Absent: distended, firm , guarding, tenderness, rebound - Extremities Exam Extremities exam: Present: normal inspection. Absent: calf tenderness, edema Results - Labs CBC & BMP: 11/26/16 03:07 11/26/16 03:07 Lab Results: I have reviewed the past 24 hour labs Specialty Discharge - Follow Up or Referrals
--- NOTE | 2016-11-26 10:34 | Cardiology Progress Note ---
<Aleja Mcrae E - Last Filed: 11/26/16 10:25> Assessment and Plan - Time spent with patient Time spent with patient: Less than 30 minutes Time spent discussing smoking cessation with patient: 3 to 10 minutes (1) Non-STEMI (non-ST elevated myocardial infarction) Status: Acute Assessment and plan: 65-year-old smoker who presented with non-STEMI with elevated troponin and symptoms of angina. Underwent left heart catheterization on 11/25/2016 and received drug-eluting stent to 99% mid LAD lesion. She is on aspirin and Brilinta as well as beta-jacob and statin. Echo is pending. Current Visit: Yes (2) Chest pain Status: Acute Assessment and plan: Underwent LHC with Dr. Martin yesterday and received a 2.53b06yq Synergey MICHAEL to a 99% mid LAD lesion. She was also noted to have a high mid RCA occlusion with collaterals that may require future intervention. No further episodes of chest pain, but shortness of breath continues. Current Visit: Yes (3) Elevated troponin Status: Acute Assessment and plan: Peak troponin 1.5 with elevated CK-MB of 12.8 at [facility]. Troponins trending down. Current Visit: Yes (4) Family history of premature CAD Status: Chronic Assessment and plan: She has a strong family history of CAD including a mother who had an AZ at age 48 and after CABG, dad had an AZ at age 65 required CABG, and a little brother who had an AZ in his 40s. Current Visit: Yes (5) Hypertension Status: Chronic Assessment and plan: Currently well controlled. We will continue to monitor and adjust as needed. Current Visit: Yes (6) GERD (gastroesophageal reflux disease) Status: Chronic Assessment and plan: Continue Protonix. Current Visit: Yes (7) Asthma Status: Chronic Assessment and plan: We have started her on Xopenex breathing treatments. Current Visit: Yes (8) Diverticulosis Status: Chronic Assessment and plan: Has previously been seen by GI Dr. Prasad in [place], [place]. reports she has recently undergone 2 colonoscopies to remove precancerous polyps. Current Visit: Yes (9) COPD (chronic obstructive pulmonary disease) Status: Chronic Assessment and plan: Currently has audible wheezes. We will start her on Xopenex breathing treatments every 4 hours. IV fluids have been discontinued at this time. Bibasilar crackles are noted upon exam. She is being given a one time dose of IV Lasix today. Current Visit: Yes (10) Sciatic nerve pain Status: Acute Assessment and plan: Denies any sciatic pain presently. Current Visit: Yes (11) Tobacco abuse Status: Chronic Assessment and plan: Has moved 1-2 packs per day for the last 46 years. Reports she has previously tried oral medications which "made her crazy." Patient is agreeable to trying nicotine patches to help her quit smoking. Current Visit: Yes Cardiology - PN: Subj Interval history: Audio Visual Director: None (first seen by Dr. Draper) Ms. Pope underwent LHC yesterday by Dr. Martin and received a 2.13c26zm Synergey MICHAEL to a 99% mid LAD lesion. She was also noted to have a high mid RCA occlusion with collaterals that may require future intervention. She has been observed in the CCU overnight. She remains short of breath today and is requiring O2 via facemask. She continues to have diffuse expiratory wheezes and a few crackles are auscultated in the bilateral bases. Her right groin dressing is dry and intact, she did have some sanguineous drainage. She does have some ecchymosis surrounding her cath site, but there is no hematoma or bruit present. She has some mild tenderness. Femoral pulse 3+ with distal pulses present and palpable. She will be transferred up to the telemetry floor today if a bed is available. We will review her echocardiogram to further assess her heart function. Creatinine and H&H remain stable today. I reiterated the importance of tobacco cessation with Ms. Pope today. She voices understanding and agrees she needs to stop smoking. Exam (Progress Note) - Constitutional Vitals: Period Temp Pulse Resp BP Sys/Yeung Pulse Ox Last 24 Hr 96.8 F-97.1 F 69-94 17-25 85-144/44-95 84-97 Exam: General: Present: Appears Well, Mild respiratory Distress. O2 via facemask. HEENT: Present: PERRL, Normocephaly, atraumatic. Mucus Membranes Moist. No jaundice noted. Conjunctiva moist and clear, sclerae anicteric Neck: Present: Supple Neck, Midline Trachea, No Masses, No Bruit, No tenderness Cardiac: Present: Regular Rate and Rhythm, No Murmur Lungs: Present: Audible wheezing with bibasilar crackles posteriorly. Neuro: Present: Awake, alert, and oriented x3. Moves all extremities well without hemiparesis or paralysis. Grossly Intact. Absent: Resting Tremor, Essential Tremor Abdomen: Present: Soft, Active Bowel Sounds, No Masses, Non-Tender, nondistended. No abdominal bruit or thrill noted. Skin: Present: Clear. Absent: Rash, No skin breakdown. Back: Normal inspection, no vertebral tenderness. Musculoskeletal: Present: No Fluid Collection, No Pain, Normal Range of Motion Extremities: Present: Normal Gait, No Clubbing, No Cyanosis, Upper Extr. Pulses 2+, Lower Extr. Pulses 2+, No edema. Capillary refill less than 3 seconds. Right groin: Dressing dry and intact with sanguineous drainage noted to gauze. No active bleeding or hematoma. No bruit. Mild tenderness to palpation. Ecchymosis noted surrounding cath site. Femoral pulse 3+. Distal pulses present and palpable. Result/EKG - Labs CBC & BMP: 11/26/16 03:07 11/26/16 03:07 Lab Results: I have reviewed the past 24 hour labs Labs: Laboratory Results - last 24 hr 11/25/16 11/25/16 11/25/16 14:23 16:39 18:45 WBC RBC Hgb Hct MCV MCH MCHC RDW Plt Count MPV Neut % (Auto) Lymph % (Auto) [place] % (Auto) Eos % (Auto) Baso % (Auto) Neut # (Auto) Lymph # (Auto) [place] # (Auto) Eos # (Auto) Baso # (Auto) Immature Gran % Nucleated RBC % Immature Gran # Nucleated RBCs # ABG pH 7.340 L ABG pCO2 39.9 ABG pO2 51.2 L ABG HCO3 20.8 ABG Total CO2 18.8 L ABG O2 Saturation 83.7 L ABG Base Excess -4.0 L Sodium Potassium Chloride Carbon Dioxide Anion Gap BUN Creatinine GFR Calculation BUN/Creatinine Ratio Glucose Calculated Osmolality Calcium Magnesium Total Creatine Kinase 79 CK-MB (CK-2) 12.2 H CK and CKMB Interp 15.4 Troponin I 0.660 H D Urine Color Yellow Urine Appearance Cloudy Urine pH 5.0 Ur Specific Reynolds 1.024 Urine Protein Negative Urine Glucose (UA) Negative Urine Ketones Negative Urine Blood Small Urine Nitrate Negative Urine Bilirubin Negative Urine Urobilinogen < 2.0 H Urine Leukocytes Small H Urine RBC 9 Urine WBC 14 Ur Squamous Epith Cells Moderate Urine Bacteria Occasional Hyaline Casts 3 Urine Mucus Occasional Urine Yeast (Budding) Occasional Ur Culture Indicated? Results to follow 11/25/16 11/26/16 11/26/16 19:36 03:07 03:07 WBC 11.7 D 13.1 H RBC 4.38 4.40 Hgb 13.4 13.3 Hct 43.0 42.9 MCV 98.2 97.5 MCH 31 30 MCHC 31.2 L 31.0 L RDW 13.8 13.8 Plt Count 124 L D 135 MPV 12.1 H 12.5 H Neut % (Auto) 84.0 H 81.9 H Lymph % (Auto) 7.2 L 9.4 L [place] % (Auto) 7.7 7.8 Eos % (Auto) 0.2 0.2 Baso % (Auto) 0.2 0.2 Neut # (Auto) 9.8 H 10.7 H Lymph # (Auto) 0.8 L 1.2 L [place] # (Auto) 0.9 H 1.0 H Eos # (Auto) 0.0 0.0 Baso # (Auto) 0.0 0.0 Immature Gran % 0.7 0.5 Nucleated RBC % 0.0 0.0 Immature Gran # 0.08 0.07 Nucleated RBCs # 0.00 0.00 ABG pH ABG pCO2 ABG pO2 ABG HCO3 ABG Total CO2 ABG O2 Saturation ABG Base Excess Sodium 142 Potassium 3.8 Chloride 106 Carbon Dioxide 25 Anion Gap 14.8 BUN 17 Creatinine 0.90 GFR Calculation 69 BUN/Creatinine Ratio 18.00 Glucose 103 Calculated Osmolality 284.1 Calcium 8.4 L Magnesium 2.4 Total Creatine Kinase CK-MB (CK-2) CK and CKMB Interp Troponin I Urine Color Urine Appearance Urine pH Ur Specific Reynolds Urine Protein Urine Glucose (UA) Urine Ketones Urine Blood Urine Nitrate Urine Bilirubin Urine Urobilinogen Urine Leukocytes Urine RBC Urine WBC Ur Squamous Epith Cells Urine Bacteria Hyaline Casts Urine Mucus Urine Yeast (Budding) Ur Culture Indicated? 11/26/16 03:07 WBC RBC Hgb Hct MCV MCH MCHC RDW Plt Count MPV Neut % (Auto) Lymph % (Auto) [place] % (Auto) Eos % (Auto) Baso % (Auto) Neut # (Auto) Lymph # (Auto) [place] # (Auto) Eos # (Auto) Baso # (Auto) Immature Gran % Nucleated RBC % Immature Gran # Nucleated RBCs # ABG pH ABG pCO2 ABG pO2 ABG HCO3 ABG Total CO2 ABG O2 Saturation ABG Base Excess Sodium Potassium Chloride Carbon Dioxide Anion Gap BUN Creatinine GFR Calculation BUN/Creatinine Ratio Glucose Calculated Osmolality Calcium Magnesium Total Creatine Kinase 89 CK-MB (CK-2) 16.6 H CK and CKMB Interp 18.7 Troponin I 0.904 H D Urine Color Urine Appearance Urine pH Ur Specific [place] Urine Protein Urine Glucose (UA) Urine Ketones Urine Blood Urine Nitrate Urine Bilirubin Urine Urobilinogen Urine Leukocytes Urine RBC Urine WBC Ur Squamous Epith Cells Urine Bacteria Hyaline Casts Urine Mucus Urine Yeast (Budding) Ur Culture Indicated? - EKG EKG results: interpreted by me, sinus rhythm Specialty Discharge - Follow Up or Referrals <Andrei Draper - Last Filed: 11/26/16 11:27> Cardiology - PN: Subj Interval history: Patient personally interviewed and examined and chart reviewed. Discussed case with Aleja Mcrae in [place]. Agree with history, exam and assessment. In summation in addition to his coronary disease it was probably causing her symptomatology now post intervention with stent placed in the LAD. Patient is not having any other symptomatology she's had precatheterization. She is short of breath and some of this is secondary to pulmonary vascular congestion. Chest appear to have some that prior to catheterization. I do not know what her LV function is. She is clinically stable making good progress We will continue the patient's medical therapy and post interventional therapy. Will check an echocardiogram to reevaluate her LV function. Exam (Progress Note) - Constitutional Vitals: Period Temp Pulse Resp BP Sys/Yeung Pulse Ox Last 24 Hr 96.8 F-97.1 F 69-96 17-28 85-144/44-95 84-97 Result/EKG - Labs CBC & BMP: 11/26/16 03:07 11/26/16 03:07 Labs: Laboratory Results - last 24 hr 11/25/16 11/25/16 11/25/16 14:23 16:39 18:45 WBC RBC Hgb Hct MCV MCH MCHC RDW Plt Count MPV Neut % (Auto) Lymph % (Auto) [place] % (Auto) Eos % (Auto) Baso % (Auto) Neut # (Auto) Lymph # (Auto) [place] # (Auto) Eos # (Auto) Baso # (Auto) Immature Gran % Nucleated RBC % Immature Gran # Nucleated RBCs # ABG pH 7.340 L ABG pCO2 39.9 ABG pO2 51.2 L ABG HCO3 20.8 ABG Total CO2 18.8 L ABG O2 Saturation 83.7 L ABG Base Excess -4.0 L Sodium Potassium Chloride Carbon Dioxide Anion Gap BUN Creatinine GFR Calculation BUN/Creatinine Ratio Glucose Calculated Osmolality Calcium Magnesium Total Creatine Kinase 79 CK-MB (CK-2) 12.2 H CK and CKMB Interp 15.4 Troponin I 0.660 H D Urine Color Yellow Urine Appearance Cloudy Urine pH 5.0 Ur Specific [place] 1.024 Urine Protein Negative Urine Glucose (UA) Negative Urine Ketones Negative Urine Blood Small Urine Nitrate Negative Urine Bilirubin Negative Urine Urobilinogen < 2.0 H Urine Leukocytes Small H Urine RBC 9 Urine WBC 14 Ur Squamous Epith Cells Moderate Urine Bacteria Occasional Hyaline Casts 3 Urine Mucus Occasional Urine Yeast (Budding) Occasional Ur Culture Indicated? Results to follow 11/25/16 11/26/16 11/26/16 19:36 03:07 03:07 WBC 11.7 D 13.1 H RBC 4.38 4.40 Hgb 13.4 13.3 Hct 43.0 42.9 MCV 98.2 97.5 MCH 31 30 MCHC 31.2 L 31.0 L RDW 13.8 13.8 Plt Count 124 L D 135 MPV 12.1 H 12.5 H Neut % (Auto) 84.0 H 81.9 H Lymph % (Auto) 7.2 L 9.4 L [place] % (Auto) 7.7 7.8 Eos % (Auto) 0.2 0.2 Baso % (Auto) 0.2 0.2 Neut # (Auto) 9.8 H 10.7 H Lymph # (Auto) 0.8 L 1.2 L [place] # (Auto) 0.9 H 1.0 H Eos # (Auto) 0.0 0.0 Baso # (Auto) 0.0 0.0 Immature Gran % 0.7 0.5 Nucleated RBC % 0.0 0.0 Immature Gran # 0.08 0.07 Nucleated RBCs # 0.00 0.00 ABG pH ABG pCO2 ABG pO2 ABG HCO3 ABG Total CO2 ABG O2 Saturation ABG Base Excess Sodium 142 Potassium 3.8 Chloride 106 Carbon Dioxide 25 Anion Gap 14.8 BUN 17 Creatinine 0.90 GFR Calculation 69 BUN/Creatinine Ratio 18.00 Glucose 103 Calculated Osmolality 284.1 Calcium 8.4 L Magnesium 2.4 Total Creatine Kinase CK-MB (CK-2) CK and CKMB Interp Troponin I Urine Color Urine Appearance Urine pH Ur Specific Reynolds Urine Protein Urine Glucose (UA) Urine Ketones Urine Blood Urine Nitrate Urine Bilirubin Urine Urobilinogen Urine Leukocytes Urine RBC Urine WBC Ur Squamous Epith Cells Urine Bacteria Hyaline Casts Urine Mucus Urine Yeast (Budding) Ur Culture Indicated? 11/26/16 03:07 WBC RBC Hgb Hct MCV MCH MCHC RDW Plt Count MPV Neut % (Auto) Lymph % (Auto) [place] % (Auto) Eos % (Auto) Baso % (Auto) Neut # (Auto) Lymph # (Auto) [place] # (Auto) Eos # (Auto) Baso # (Auto) Immature Gran % Nucleated RBC % Immature Gran # Nucleated RBCs # ABG pH ABG pCO2 ABG pO2 ABG HCO3 ABG Total CO2 ABG O2 Saturation ABG Base Excess Sodium Potassium Chloride Carbon Dioxide Anion Gap BUN Creatinine GFR Calculation BUN/Creatinine Ratio Glucose Calculated Osmolality Calcium Magnesium Total Creatine Kinase 89 CK-MB (CK-2) 16.6 H CK and CKMB Interp 18.7 Troponin I 0.904 H D Urine Color Urine Appearance Urine pH Ur Specific [place] Urine Protein Urine Glucose (UA) Urine Ketones Urine Blood Urine Nitrate Urine Bilirubin Urine Urobilinogen Urine Leukocytes Urine RBC Urine WBC Ur Squamous Epith Cells Urine Bacteria Hyaline Casts Urine Mucus Urine Yeast (Budding) Ur Culture Indicated?
--- NOTE | 2016-11-26 11:43 | XRay Report ---
Exam: XR chest 1V portable Date: 11/26/2016 10:07 AM Indication: Volume fluid overload Comparison: 11/25/2016 Technical: AP portable Findings: Cardiomegaly present with mild shunt vascularity with slight improvement when compared to the previous exam tiny low-volume effusions are present. No pneumothorax. ASVD is present. Lateral marginal osteophytes are present. Impression: 1. Persistent findings of interstitial alveolar edema and CHF, slightly improved when compared to previous exam PROCEDURE INTERPRETED AT [facility] DEPARTMENT OF RADIOLOGY Final Report Signed by: Dr. Patrick Saez
[2016-11-26] MEDS: MONTELUKAST 10 MG TABLET PO SCH (20:41)
[2016-11-27 06:14] LABS: Basophils % 0.2 % (0.0-0.8); Eosinophils # 0.1 10*3/uL (0.0-0.87); Eosinophils % 0.5 % (0.00-10.9); Hematocrit 36.4 VOL% (35.7-47.0); Hemoglobin 11.6 GM/DL (12.0-16.0); Immature Granulocytes % 0.6 %; Immature Granulocytes Absolute 0.08 #; Lymphocytes # 1.9 10*3/uL (1.4-4.0); Lymphocytes % 13.8 % (21.3-54.2); Mean Corpuscular HGB Conc 31.9 GM/DL (32-36); Mean Corpuscular Hemoglobin 30 PG (27-34); Mean Corpuscular Volume 95.3 FL (87-102); Mean Platelet Volume 12.1 FL (9.6-12.0); Monocytes # 1.2 10*3/uL (0.11-0.8); Monocytes % 8.7 % (1.7-12.7); Neutrophils # 10.2 10*3/uL (1.4-7.4); Neutrophils % 76.2 % (38.7-73.9); Platelet Count 116 T/CUMM (130-400); Red Blood Count 3.82 MC/CUMM (3.8-5.5); Red Cell Distribution Width 13.7 % (9.3-17.3); White Blood Count 13.4 T/CUMM (4-12)
[2016-11-27 07:14] LABS: Calcium 7.8 MG/DL (8.5-10.1); Magnesium 2.4 MG/DL (1.8-2.4); Osmolality,Calculated 282.4 MOS/KG (273-304); Potassium 3.6 MMOL/L (3.5-5.1)
[2016-11-27] MEDS: ROSUVASTATIN 20 MG TABLET PO SCH (09:36)
[2016-11-27] MEDS: ASPIRIN EC 81 MG TABLET PO SCH (09:37)
[2016-11-27] MEDS: METOPROLOL TARTRATE 50 MG TABLET PO SCH ×2 (09:37→20:30)
[2016-11-27] MEDS: PANTOPRAZOLE 40 MG TABLET PO SCH (09:37)
[2016-11-27] MEDS: TICAGRELOR 90 MG TABLET PO SCH ×2 (09:37→20:29)
[2016-11-27] MEDS: DILTIAZEM CD 240 MG CAPSULE PO SCH (09:37)
--- NOTE | 2016-11-27 10:49 | Cardiology Progress Note ---
<Aleja Mcrae E - Last Filed: 11/27/16 10:47> Assessment and Plan - Time spent with patient Time spent with patient: Less than 30 minutes (1) Non-STEMI (non-ST elevated myocardial infarction) Status: Acute Assessment and plan: 65-year-old smoker who presented with non-STEMI with elevated troponin and symptoms of angina. Underwent left heart catheterization on 11/25/2016 and received drug-eluting stent to 99% mid LAD lesion. She is on aspirin and Brilinta as well as beta-jacob and statin. She is now pain-free and her shortness of breath is improving. She becomes slightly anxious when she does not have her oxygen on even though she is able to maintain good oxygen saturation. We will slowly try to wean her O2 today. Echo is pending. Current Visit: Yes (2) Chest pain Status: Acute Assessment and plan: Underwent LHC with Dr. Martin yesterday and received a [id number] Synergey MICHAEL to a 99% mid LAD lesion. She was also noted to have a high mid RCA occlusion with collaterals that may require future intervention. No further episodes of chest pain, but mild shortness of breath with exertion continues. Current Visit: Yes (3) Elevated troponin Status: Acute Assessment and plan: Peak troponin 1.5 with elevated CK-MB of 12.8 at [facility]. This had tapered off but has risen appropriately post catheterization. Current Visit: Yes (4) Family history of premature CAD Status: Chronic Assessment and plan: She has a strong family history of CAD including a mother who had an KY at age 48 and after CABG, dad had an KY at age 65 required CABG, and a little brother who had an KY in his 40s. Current Visit: Yes (5) Hypertension Status: Chronic Assessment and plan: Currently well controlled. We will continue to monitor and adjust as needed. Current Visit: Yes (6) GERD (gastroesophageal reflux disease) Status: Chronic Assessment and plan: Continue Protonix. Current Visit: Yes (7) Asthma Status: Chronic Assessment and plan: Complicated by her COPD. We are trying to wean her from O2 via facemask. She has not previously required O2 at home prior to admission but becomes anxious without it even though she is able to mainting her O2 saturation. Current Visit: Yes (8) Diverticulosis Status: Chronic Assessment and plan: Has previously been seen by GI Dr. Prasad in [place], [place]. reports she has recently undergone 2 colonoscopies to remove precancerous polyps. Current Visit: Yes (9) COPD (chronic obstructive pulmonary disease) Status: Chronic Assessment and plan: No longer requiring breathing treatments. Her wheezing has resolved. We are trying to wean her off of O2 via facemask. Current Visit: Yes (10) Sciatic nerve pain Status: Acute Assessment and plan: Denies any sciatic pain presently. Current Visit: Yes (11) Tobacco abuse Status: Chronic Assessment and plan: Has moved 1-2 packs per day for the last 46 years. Reports she has previously tried oral medications which "made her crazy." Patient is agreeable to trying nicotine patches to help her quit smoking. 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 Draper) Ms. Pope is doing well today. She was transferred up to the telemetry unit last night from CCU. She had left heart catheterization on 11/25/2016 and received a 2.75 x 20 mm Synergy drug-eluting stent to a 99% mid LAD lesion. She is also known to have high to mid RCA occlusion with collaterals that may require future intervention. Ms. Pope is breathing comfortably on O2 via facemask. She is on 50% O2. Her oxygen saturations on nasal cannula had been above 95%, but she states she "feels better" with oxygen via face mask. She is requesting to go home soon and I informed her that she cannot go home on oxygen via facemask. We will try to wean her oxygen down today. I cut her down to 35 % O2 in the room and informed her nurse that we could try nasal cannula after lunch and see how she tolerates this. I moved her right groin dressing today and she has no bleeding. Did not hear a bruit but she does have a little hematoma beneath her cath site, approximately nickel to quarter size. She has a good bit of ecchymosis around her cath site and is very tender to palpation of her right groin. We will get an ultrasound to make sure her cath site is stable. She does still have a few bibasilar crackles more so on the left side. She is otherwise clear to auscultation today. Exam (Progress Note) - Constitutional Vitals: Period Temp Pulse Resp BP Sys/Yeung Pulse Ox Last 24 Hr 97.3 F-98.7 F 78-99 18-30 115-143/60-104 89-98 Exam: General: Present: Appears Well, Mild respiratory Distress. O2 via facemask. HEENT: Present: PERRL, Normocephaly, atraumatic. Mucus Membranes Moist. No jaundice noted. Conjunctiva moist and clear, sclerae anicteric Neck: Present: Supple Neck, Midline Trachea, No Masses, No Bruit, No tenderness Cardiac: Present: Regular Rate and Rhythm, No Murmur Lungs: Present: Few bibasilar crackles posteriorly, more on the left side, otherwise clear to auscultation. Neuro: Present: Awake, alert, and oriented x3. Moves all extremities well without hemiparesis or paralysis. Grossly Intact. Absent: Resting Tremor, Essential Tremor Abdomen: Present: Soft, Active Bowel Sounds, No Masses, Non-Tender, nondistended. No abdominal bruit or thrill noted. Skin: Present: Clear. Absent: Rash, No skin breakdown. Back: Normal inspection, no vertebral tenderness. Musculoskeletal: Present: No Fluid Collection, No Pain, Normal Range of Motion Extremities: Present: Normal Gait, No Clubbing, No Cyanosis, Upper Extr. Pulses 2+, Lower Extr. Pulses 2+, No edema. Capillary refill less than 3 seconds. Right groin: Dressing removed and cath site left open to air. No active bleeding. Nickel to quarter size hematoma noted to right groin. Patient is very tender to palpation today. No bruit present. Ecchymosis noted surrounding cath site. Femoral pulse 3+. Distal pulses present and palpable. Result/EKG - Labs CBC & BMP: 11/27/16 05:05 11/27/16 05:05 Lab Results: I have reviewed the past 24 hour labs Labs: Laboratory Results - last 24 hr 11/27/16 11/27/16 05:05 05:05 WBC 13.4 H RBC 3.82 Hgb 11.6 L Hct 36.4 MCV 95.3 MCH 30 MCHC 31.9 L RDW 13.7 Plt Count 116 L MPV 12.1 H Neut % (Auto) 76.2 H Lymph % (Auto) 13.8 L [place] % (Auto) 8.7 Eos % (Auto) 0.5 Baso % (Auto) 0.2 Neut # (Auto) 10.2 H Lymph # (Auto) 1.9 [place] # (Auto) 1.2 H Eos # (Auto) 0.1 Baso # (Auto) 0.0 Immature Gran % 0.6 Nucleated RBC % 0.0 Immature Gran # 0.08 Nucleated RBCs # 0.00 Sodium 140 Potassium 3.6 Chloride 106 Carbon Dioxide 27 Anion Gap 10.6 BUN 25 H Creatinine 0.80 GFR Calculation 79 BUN/Creatinine Ratio 31.00 H Glucose 106 Calculated Osmolality 282.4 Calcium 7.8 L Magnesium 2.4 - EKG EKG results: interpreted by me, sinus rhythm Specialty Discharge - Follow Up or Referrals <Andrei Draper Sid - Last Filed: 11/27/16 16:47> Cardiology - PN: Subj Interval history: The patient interviewed and examined and chart reviewed. I discussed the case with Aleja MCRAE ROUNDER HAND. I agree with the assessment and plan. In summation in addition the patient ultrasound the right groin is stable without any pseudoaneurysm or AV fistula. The patient is generally progressed well. SHE will ambulate and she remained stable hopefully home soon. Exam (Progress Note) - Constitutional Vitals: Period Temp Pulse Resp BP Sys/Yeung Pulse Ox Last 24 Hr 96.8 F-98.5 F 78-99 18-30 115-143/60-79 95-98 Result/EKG - Labs CBC & BMP: 11/27/16 05:05 11/27/16 05:05 Labs: Laboratory Results - last 24 hr 11/27/16 11/27/16 05:05 05:05 WBC 13.4 H RBC 3.82 Hgb 11.6 L Hct 36.4 MCV 95.3 MCH 30 MCHC 31.9 L RDW 13.7 Plt Count 116 L MPV 12.1 H Neut % (Auto) 76.2 H Lymph % (Auto) 13.8 L [place] % (Auto) 8.7 Eos % (Auto) 0.5 Baso % (Auto) 0.2 Neut # (Auto) 10.2 H Lymph # (Auto) 1.9 [place] # (Auto) 1.2 H Eos # (Auto) 0.1 Baso # (Auto) 0.0 Immature Gran % 0.6 Nucleated RBC % 0.0 Immature Gran # 0.08 Nucleated RBCs # 0.00 Sodium 140 Potassium 3.6 Chloride 106 Carbon Dioxide 27 Anion Gap 10.6 BUN 25 H Creatinine 0.80 GFR Calculation 79 BUN/Creatinine Ratio 31.00 H Glucose 106 Calculated Osmolality 282.4 Calcium 7.8 L Magnesium 2.4
--- NOTE | 2016-11-27 13:19 | Ultrasound Report ---
Exam: US arterial duplex LE RT Date: 11/27/2016 10:48 AM Indication: Tenderness hematoma post catheterization Technical grayscale color flow imaging was obtained with spectral wave analysis right inguinal region. Findings:: There is a small hematoma measuring approximately 1.9 x 1 cm in the right groin. The common femoral artery is demonstrated without abnormality with normal triphasic waveform. The common femoral vein is patent. The exam reveals no AV fistula or pseudoaneurysm. Color flow present Impression: 1. No pseudoaneurysm or AV fistula 2. Small hematoma right groin measuring up to 1.9 cm PROCEDURE INTERPRETED AT [facility] DEPARTMENT OF RADIOLOGY Final Report Signed by: Dr. Patrick Saez
--- NOTE | 2016-11-27 14:14 | Hospitalist Progress Note ---
Assessment and Plan - Time spent with patient Time spent with patient: Greater than 30 minutes (1) SOB (shortness of breath) Status: Acute Assessment and plan: Echo pending. Likely acute congestive heart failure. Improving. Start Lasix 40 mg IV daily. Follow creatinine. Current Visit: Yes (2) Chest pain Status: Acute Assessment and plan: Status post PCI, stable Current Visit: Yes (3) CAD (coronary artery disease) Status: Acute Assessment and plan: On dual antiplatelets. Continue B jacob, statin. See above. Current Visit: Yes (4) COPD (chronic obstructive pulmonary disease) Status: Chronic Assessment and plan: Does not appear to be in exacerbation. Continue BTx. Current Visit: Yes (5) Tobacco abuse Status: Chronic Assessment and plan: Nicotine patch. Current Visit: Yes Hospitalist: Subjective Interval history: Patient reports continued shortness of breath however it has improved since admission. Exam - Constitutional Vitals: Period Temp Pulse Resp BP Sys/Yeung Pulse Ox Last 24 Hr 96.8 F-98.7 F 78-99 18-30 115-143/60-79 90-98 General appearance: no acute distress - Head Head exam: Present: normocephalic, atraumatic - Eye Eye exam: Present: EOMI Pupils: Present: DEWAYNE - ENT ENT exam: Present: normal exam - Neck Neck exam: Present: normal inspection - Respiratory Respiratory exam: Present: other (Crackles at the bases bilaterally). Absent: rhonchi, wheezes - Cardiovascular Cardiovascular exam: Present: regular rate and rhythm. Absent: gallop, rubs, systolic murmur - GI/Abdominal GI/Abdominal exam: Present: normal bowel sounds, soft. Absent: distended, firm , guarding, tenderness, rebound - Extremities Exam Extremities exam: Present: normal inspection. Absent: calf tenderness, edema Results - Labs CBC & BMP: 11/27/16 05:05 11/27/16 05:05 Lab Results: I have reviewed the past 24 hour labs Specialty Discharge - Follow Up or Referrals
[2016-11-27] MEDS: FUROSEMIDE 40 MG/4 ML VIAL IV SCH (17:05)
[2016-11-27] MEDS: MONTELUKAST 10 MG TABLET PO SCH (20:30)
[2016-11-28 04:23] LABS: Basophils % 0.2 % (0.0-0.8); Eosinophils # 0.1 10*3/uL (0.0-0.87); Eosinophils % 1.2 % (0.00-10.9); Hematocrit 33.6 VOL% (35.7-47.0); Hemoglobin 11.1 GM/DL (12.0-16.0); Immature Granulocytes % 0.7 %; Immature Granulocytes Absolute 0.08 #; Lymphocytes # 1.8 10*3/uL (1.4-4.0); Lymphocytes % 15.5 % (21.3-54.2); Mean Corpuscular Hemoglobin 30 PG (27-34); Mean Corpuscular Volume 91.6 FL (87-102); Mean Platelet Volume 12.3 FL (9.6-12.0); Monocytes # 0.8 10*3/uL (0.11-0.8); Monocytes % 7.1 % (1.7-12.7); Neutrophils # 8.9 10*3/uL (1.4-7.4); Neutrophils % 75.3 % (38.7-73.9); Platelet Count 123 T/CUMM (130-400); Red Blood Count 3.67 MC/CUMM (3.8-5.5); Red Cell Distribution Width 13.8 % (9.3-17.3); White Blood Count 11.8 T/CUMM (4-12)
[2016-11-28 04:45] LABS: Calcium 8.2 MG/DL (8.5-10.1); Magnesium 2.2 MG/DL (1.8-2.4); Osmolality,Calculated 280.5 MOS/KG (273-304); Potassium 3.3 MMOL/L (3.5-5.1)
[2016-11-28] MEDS: DILTIAZEM CD 240 MG CAPSULE PO SCH (09:50)
[2016-11-28] MEDS: METOPROLOL TARTRATE 50 MG TABLET PO SCH (09:51)
[2016-11-28] MEDS: PANTOPRAZOLE 40 MG TABLET PO SCH (09:51)
[2016-11-28] MEDS: TICAGRELOR 90 MG TABLET PO SCH (09:51)
[2016-11-28] MEDS: ASPIRIN EC 81 MG TABLET PO SCH (09:51)
[2016-11-28] MEDS: FUROSEMIDE 40 MG/4 ML VIAL IV SCH (09:51)
[2016-11-28] MEDS: ROSUVASTATIN 20 MG TABLET PO SCH (09:51)
--- NOTE | 2016-11-28 10:11 | Cardiology Progress Note ---
Assessment and Plan (1) COPD (chronic obstructive pulmonary disease) Status: Chronic Assessment and plan: 1. Status post non-STEMI and stenting of critical mid LAD lesion with resolution of her angina 2. Check echocardiogram to evaluate LV function 3. We discussed her absolute need to never smoke again; she reports side effects with Wellbutrin; she is agreed to try Chantix so we'll start today; removed nicotine patch 4. Room air sats are 97% so we'll discontinue O2 5. Ultrasound showed small hematoma at her right groin access site only 6. We'll plan for discharge in the morning if she has no setbacks 7. Encourage ambulation Current Visit: Yes (2) Tobacco abuse Status: Chronic Current Visit: Yes (3) Non-STEMI (non-ST elevated myocardial infarction) Status: Acute Current Visit: Yes Cardiology - PN: Subj Interval history: Mrs. Pope feeling better but does get short of breath at times. She uses her oxygen intermittently. We checked sats on room air and was 97%. She denies any chest discomfort. She does not have any discomfort in his right groin access site. Exam (Progress Note) - Constitutional Vitals: Period Temp Pulse Resp BP Sys/Yeung Pulse Ox Last 24 Hr 96.4 F-98.7 F 78-87 18-24 115-143/67-78 96-99 General appearance: no acute distress, over weight - Head Head exam: Present: normal inspection, normocephalic, atraumatic - Respiratory Respiratory exam: Present: prolonged expiratory phase. Absent: rhonchi, stridor - Cardiovascular Cardiovascular exam: Present: regular rate and rhythm. Absent: diastolic murmur , rubs - GI/Abdominal GI/Abdominal exam: Present: soft. Absent: tenderness - Extremities Exam Extremities exam: Absent: edema Result/EKG - Labs CBC & BMP: 11/28/16 03:52 11/28/16 03:52 Labs: Laboratory Results - last 24 hr 11/28/16 11/28/16 03:52 03:52 WBC 11.8 RBC 3.67 L Hgb 11.1 L Hct 33.6 L MCV 91.6 MCH 30 MCHC 33.0 RDW 13.8 Plt Count 123 L MPV 12.3 H Neut % (Auto) 75.3 H Lymph % (Auto) 15.5 L [place] % (Auto) 7.1 Eos % (Auto) 1.2 Baso % (Auto) 0.2 Neut # (Auto) 8.9 H Lymph # (Auto) 1.8 [place] # (Auto) 0.8 Eos # (Auto) 0.1 Baso # (Auto) 0.0 Immature Gran % 0.7 Nucleated RBC % 0.0 Immature Gran # 0.08 Nucleated RBCs # 0.00 Sodium 139 Potassium 3.3 L Chloride 105 Carbon Dioxide 25 Anion Gap 12.3 BUN 21 H Creatinine 0.70 GFR Calculation 93 BUN/Creatinine Ratio 30.00 H Glucose 122 H Calculated Osmolality 280.5 Calcium 8.2 L Magnesium 2.2 Specialty Discharge - Follow Up or Referrals
--- NOTE | 2016-11-28 11:10 | Hospitalist Progress Note ---
Assessment and Plan - Time spent with patient Time spent with patient: Greater than 30 minutes (1) SOB (shortness of breath) Status: Acute Assessment and plan: Echo results have returned. We will continue IV Lasix however I feel this is most likely her last dose. There does not appear to be any significant dysfunction on echocardiogram. Current Visit: Yes (2) Chest pain Status: Acute Assessment and plan: Status post PCI, stable. Current Visit: Yes (3) CAD (coronary artery disease) Status: Acute Assessment and plan: On dual antiplatelets. Continue B jacob, statin. See above. Current Visit: Yes (4) COPD (chronic obstructive pulmonary disease) Status: Chronic Assessment and plan: Does not appear to be in exacerbation. Continue BTx. Current Visit: Yes (5) Tobacco abuse Status: Chronic Assessment and plan: Nicotine patch. Counseled on smoking cessation. Current Visit: Yes Hospitalist: Subjective Interval history: Patient states she feels much better this morning. No overnight events. Exam - Constitutional Vitals: Period Temp Pulse Resp BP Sys/Yeung Pulse Ox Last 24 Hr 96.4 F-98.7 F 78-87 18-24 115-143/67-78 96-99 General appearance: no acute distress - Head Head exam: Present: normocephalic, atraumatic - Eye Eye exam: Present: EOMI Pupils: Present: DEWAYNE - ENT ENT exam: Present: normal exam - Neck Neck exam: Present: normal inspection - Respiratory Respiratory exam: Present: clear to auscultation bilaterally. Absent: rhonchi, wheezes - Cardiovascular Cardiovascular exam: Present: regular rate and rhythm. Absent: gallop, rubs, systolic murmur - GI/Abdominal GI/Abdominal exam: Present: normal bowel sounds, soft. Absent: distended, firm , guarding, tenderness, rebound - Extremities Exam Extremities exam: Present: normal inspection. Absent: calf tenderness, edema Results - Labs CBC & BMP: 11/28/16 03:52 11/28/16 03:52 Lab Results: I have reviewed the past 24 hour labs Specialty Discharge - Follow Up or Referrals
--- NOTE | 2016-11-28 16:30 | Discharge Summary ---
Hospital Course - Hospital Course Hospital Course: Ms. Pope was admitted for evaluation of chest pain. Troponins were obtained and elevated at 1.5 on admission and tapered down to 0.9 where it plateaued. She was seen in consultation by cardiology, and given the suspicion for angina, performed a left heart cath. Patient required stenting of her critical LAD lesion which was most likely the culprit. She was initiated on dual antiplatelet therapy. She remained hospitalized given her shortness of breath and requirement for oxygen which was deemed to be secondary to volume overload as confirmed on chest x-ray. She responded very well to IV Lasix therapy. Echocardiogram was performed and did not reveal any systolic or diastolic dysfunction. By discharge she had met maximum benefit of hospitalization. She was given written prescriptions to ensure that she will receive an uninterrupted prescription of Brilinta. I spent 55 minutes coordinating this discharge. She will follow-up with cardiology in 1-2 weeks post discharge. - Time spent with patient Time with patient DS: Greater than 30 minutes Diagnosis - Discharge Diagnosis (1) SOB (shortness of breath) Status: Acute (2) Chest pain Status: Acute (3) CAD (coronary artery disease) Status: Acute (4) COPD (chronic obstructive pulmonary disease) Status: Chronic (5) Tobacco abuse Status: Chronic Specialty Discharge - Follow Up or Referrals Follow up with: Anup Martin MD [Physician] - 2 Weeks (Follow up in 1 -2 weeks for EKG, FLP, CMP, CBC.) Discharge Plan - Discharge Data Disposition: Disch To Home/Self Care Condition at Discharge: Stable Discharge Diet: advance to your usual diet Activity: resume usual activities as tolerated Hygiene: no restrictions Weight Bearing at Discharge: full weight bearing - Discharge Medications New Metoprolol Tartrate Tab [Lopressor Tab] 50 mg PO BID #60 tablet Rosuvastatin [Crestor] 40 mg PO DAILY #30 tablet Varenicline Tartrate [Chantix] 1 mg PO BID #60 tablet Aspirin EC Tab 81 mg PO DAILY #30 tablet Ticagrelor [Brilinta] 90 mg PO BID #60 tablet Furosemide Tab [Lasix Tab] 20 mg PO DAILY #30 tablet Continue Omeprazole [Prilosec] 20 mg PO DAILY dilTIAZem HCl [Diltiazem ER (24 hr)] 240 mg PO DAILY Montelukast Tab [Singulair Tab] 10 mg PO BEDTIME Gabapentin 100 mg PO DAILY - Follow Up or Referral Follow Up: Anup Martin MD [Physician] - 2 Weeks (Follow up in 1 -2 weeks for EKG, FLP, CMP, CBC.) - Forms/Instructions Instructions: Varenicline (By mouth), Myocardial Infarction (GEN), Coronary Artery Disease (GEN), Left Heart Catheterization (DC), Heart Healthy Diet (GEN) , Cigarette Smoking and Your Health (GEN), Coronary Intravascular Stent Placement (DC) Exam - Constitutional Vitals: Period Temp Pulse Resp BP Sys/Yeung Pulse Ox Last 24 Hr 96.4 F-98.7 F 74-84 16-24 115-143/67-77 96-99 General appearance: normal weight, no acute distress - Head Head exam: Present: normal inspection, normocephalic, atraumatic - Eye Eye exam: Present: EOMI Pupils: Present: DEWAYNE - ENT ENT exam: Present: normal exam - Neck Neck exam: Present: normal inspection - Respiratory Respiratory exam: Present: clear to auscultation bilaterally. Absent: accessory muscle use, prolonged expiratory phase, wheezes - Cardiovascular Cardiovascular exam: Present: regular rate and rhythm. Absent: bradycardia, irregular rhythm, systolic murmur - GI/Abdominal GI/Abdominal exam: Present: normal bowel sounds. Absent: ascites, distended, hypoactive bowel sounds, tenderness - Extremities Exam Extremities exam: Present: normal inspection Discharge Results Procedures and tests throughout hospitalization: Pending Orders 11/29/16 04:00 BMP [Basic Metabolic Panel] IN AM BMP w/ Mg [Basic Metabolic Panel w/Mg] IN AM Comp Blood Count Auto Diff IN AM 11/30/16 04:00 BMP [Basic Metabolic Panel] IN AM BMP w/ Mg [Basic Metabolic Panel w/Mg] IN AM Comp Blood Count Auto Diff IN AM Labs on day of discharge: Labs from last 24 hours 11/28/16 11/28/16 03:52 03:52 WBC 11.8 RBC 3.67 L Hgb 11.1 L Hct 33.6 L MCV 91.6 MCH 30 MCHC 33.0 RDW 13.8 Plt Count 123 L MPV 12.3 H Neut % (Auto) 75.3 H Lymph % (Auto) 15.5 L [place] % (Auto) 7.1 Eos % (Auto) 1.2 Baso % (Auto) 0.2 Neut # (Auto) 8.9 H Lymph # (Auto) 1.8 [place] # (Auto) 0.8 Eos # (Auto) 0.1 Baso # (Auto) 0.0 Immature Gran % 0.7 Nucleated RBC % 0.0 Immature Gran # 0.08 Nucleated RBCs # 0.00 Sodium 139 Potassium 3.3 L Chloride 105 Carbon Dioxide 25 Anion Gap 12.3 BUN 21 H Creatinine 0.70 GFR Calculation 93 BUN/Creatinine Ratio 30.00 H Glucose 122 H Calculated Osmolality 280.5 Calcium 8.2 L Magnesium 2.2 DS: Provider Date of admission: 11/25/16 10:56 Primary care physician: . No PCP Attending physician on admission: Nuvia Petty MD Consults: 11/25/16 12:12 Consult to Cardiac Rehabilitation [CONS] Routine Reason for Cardiac Rehabilitation: Appt Out Pt Cardiac Rehab Consult Comment: nstemi stent Discharging clinician: Nuvia Petty MD Expected date of discharge: 11/28/16
[2016-11-28 16:38] VITALS: BP 130/71
== END 2016-11-28 19:14 | disposition home or self-care (01) | DRG 247 ==
LOC: N.ED 15:26 → N.EDINP 15:26 → N.TELES 18:03 → N.CC 11-25 18:42 → N.TELES 11-26 17:49
PROVIDERS: ADMIT Internal Medicine; ATTEND Internal Medicine
PROC: CLCCHCL (ICD-10-PCS; 2016-11-25 11:15)

== ENCOUNTER 2018-02-25 14:56 | Inpatient (IN) ==
[2018-02-25] MEDS ORDERED: SODIUM CHLORIDE 0.9% 1,000 ML IV PRN ×2 (18:25→18:39)
[2018-02-25] MEDS ORDERED: ACETAMINOPHEN 325 MG TABLET PO PRN (18:26)
[2018-02-25] MEDS ORDERED: diphenhydrAMINE 50 MG/1 ML VIAL IV PRN (18:26)
[2018-02-25] MEDS: FUROSEMIDE 40 MG/4 ML VIAL IV SCH (18:47)
[2018-02-25] MEDS ORDERED: DOCUSATE SODIUM 100 MG CAPSULE PO PRN (18:53)
[2018-02-25] MEDS ORDERED: NITROGLYCERIN SL 0.4 MG TABLET SL PRN (18:53)
[2018-02-25 20:19] LABS: Basophils % 0.1 % (0.0-0.8); Hematocrit 22.3 VOL% (35.7-47.0); Immature Granulocytes % 1.4 %; Immature Granulocytes Absolute 0.13 #; Lymphocytes # 0.7 10*3/uL (1.4-4.0); Lymphocytes % 7.2 % (21.3-54.2); Mean Corpuscular HGB Conc 27.4 GM/DL (32-36); Mean Corpuscular Hemoglobin 21 PG (27-34); Mean Corpuscular Volume 78.2 FL (87-102); Mean Platelet Volume 11.5 FL (9.6-12.0); Monocytes # 0.4 10*3/uL (0.11-0.8); NRBC # 0.13 10*3/uL; Neutrophils # 7.9 10*3/uL (1.4-7.4); Neutrophils % 87.3 % (38.7-73.9); Platelet Count 219 T/CUMM (130-400); Red Blood Count 2.85 MC/CUMM (3.8-5.5); Red Cell Distribution Width 21.1 % (9.3-17.3)
[2018-02-25 20:22] LABS: Hemoglobin 6.1 GM/DL (12.0-16.0)
[2018-02-25 20:27] LABS: Hypochromasia 2+
[2018-02-25 20:28] LABS: Polychromasia Few
[2018-02-25 20:29] LABS: Platelet Estimate Adequate
[2018-02-25] MEDS: ALBUTEROL/IPRATROPIUM 3 ML NEB RESP TX SCH (20:50)
[2018-02-25] MEDS: MONTELUKAST 10 MG TABLET PO SCH (21:14)
[2018-02-25] MEDS: CARVEDILOL 12.5 MG TABLET PO SCH (21:15)
[2018-02-26] MEDS: ALBUTEROL/IPRATROPIUM 3 ML NEB RESP TX SCH ×7 (00:12→23:12)
[2018-02-26] MEDS: PANTOPRAZOLE 40 MG VIAL IV SCH ×3 (00:41→21:43)
[2018-02-26 01:02] LABS: Basophils % 0.1 % (0.0-0.8); Hematocrit 18.3 VOL% (35.7-47.0); Immature Granulocytes % 1.7 %; Immature Granulocytes Absolute 0.13 #; Lymphocytes # 0.8 10*3/uL (1.4-4.0); Lymphocytes % 10.3 % (21.3-54.2); Mean Corpuscular HGB Conc 26.8 GM/DL (32-36); Mean Corpuscular Hemoglobin 21 PG (27-34); Mean Corpuscular Volume 77.5 FL (87-102); Mean Platelet Volume 10.4 FL (9.6-12.0); Monocytes # 0.9 10*3/uL (0.11-0.8); NRBC # 0.08 10*3/uL; Neutrophils # 5.7 10*3/uL (1.4-7.4); Neutrophils % 75.9 % (38.7-73.9); Platelet Count 173 T/CUMM (130-400); Red Blood Count 2.36 MC/CUMM (3.8-5.5); White Blood Count 7.5 T/CUMM (4-12)
[2018-02-26 01:07] LABS: Hemoglobin 4.9 GM/DL (12.0-16.0)
[2018-02-26 01:11] LABS: Calcium 8.2 MG/DL (8.5-10.1); Osmolality,Calculated 270.7 MOS/KG (273-304); Potassium 2.8 MMOL/L (3.5-5.1)
[2018-02-26 01:16] LABS: % Iron Saturation 4.2 % (18-50); Ferritin 4.9 ng/ml (8-252)
[2018-02-26 01:26] LABS: Anisocytosis 1+; Hypochromasia 1+; Polychromasia Slight; Tear Drop Cells Few
[2018-02-26 01:28] LABS: Platelet Estimate Adequate
[2018-02-26] MEDS: GABAPENTIN 300 MG CAPSULE PO PRN (02:01)
[2018-02-26] MEDS: POTASSIUM CHLORIDE 20 MEQ TABLET PO PRN ×3 (02:01→06:11)
[2018-02-26 02:13] LABS: Sedimentation Rate-Westergren 55 MM/HR (0-30)
[2018-02-26 02:58] LABS: Folate 6.9 NG/ML (5.4-24.0); Vitamin B12 223 PG/ML (211-911)
[2018-02-26 04:29] LABS: Osmolality,Calculated 273.5 MOS/KG (273-304); Potassium 3.2 MMOL/L (3.5-5.1)
[2018-02-26 04:30] LABS: Basophils % 0.1 % (0.0-0.8); Immature Granulocytes Absolute 0.11 #; Lymphocytes # 1.4 10*3/uL (1.4-4.0); Lymphocytes % 12.5 % (21.3-54.2); Mean Corpuscular HGB Conc 28.4 GM/DL (32-36); Mean Corpuscular Hemoglobin 22 PG (27-34); Mean Corpuscular Volume 75.7 FL (87-102); Mean Platelet Volume 11.8 FL (9.6-12.0); Monocytes # 1.8 10*3/uL (0.11-0.8); Monocytes % 15.6 % (1.7-12.7); NRBC # 0.12 10*3/uL; Neutrophils # 8.1 10*3/uL (1.4-7.4); Neutrophils % 70.8 % (38.7-73.9); Platelet Count 151 T/CUMM (130-400); Red Blood Count 2.51 MC/CUMM (3.8-5.5); White Blood Count 11.4 T/CUMM (4-12)
[2018-02-26 04:34] LABS: Hemoglobin 5.4 GM/DL (12.0-16.0)
[2018-02-26 05:27] LABS: Band Neutrophils 2 % (0-10); Hypochromasia 1+; Lymphocytes 12 % (20-55); Nucleated Red Blood Cells 3 (0-5); Ovalocytes Slight; Platelet Estimate Normal; Segmented Neutrophils 75 % (50-85); Total Cells Counted 100
[2018-02-26] MEDS: LEVOTHYROXINE 88 MCG TABLET PO SCH (06:11)
[2018-02-26] MEDS: SPIRONOLACTONE 25 MG TABLET PO SCH (09:14)
[2018-02-26] MEDS: CARVEDILOL 12.5 MG TABLET PO SCH ×2 (09:14→17:10)
[2018-02-26] MEDS: ROSUVASTATIN 20 MG TABLET PO SCH (09:14)
[2018-02-26] MEDS: FUROSEMIDE 40 MG/4 ML VIAL IV SCH ×2 (09:15→18:34)
[2018-02-26] MEDS ORDERED: IRON SUCROSE 300 MG in SODIUM CHLORIDE 0.9% 100 ML IV ONE (16:29)
[2018-02-26] MEDS ORDERED: CYANOCOBALAMIN 1000 MCG/1 ML VIAL IM SCH (16:30)
[2018-02-26] MEDS: POTASSIUM CHLORIDE 20 MEQ TABLET PO SCH (17:10)
[2018-02-26] MEDS: FOLIC ACID 1 MG TABLET PO SCH (21:43)
[2018-02-26] MEDS: MONTELUKAST 10 MG TABLET PO SCH (21:43)
[2018-02-27] MEDS: ALBUTEROL/IPRATROPIUM 3 ML NEB RESP TX SCH ×5 (03:28→21:17)
[2018-02-27] MEDS ORDERED: ONDANSETRON 4 MG/2 ML VIAL IV PRN (03:44)
[2018-02-27 05:54] LABS: Hematocrit 26.1 VOL% (35.7-47.0); Hemoglobin 7.7 GM/DL (12.0-16.0)
[2018-02-27] MEDS: LEVOTHYROXINE 88 MCG TABLET PO SCH (06:02)
[2018-02-27] MEDS: POTASSIUM CHLORIDE 20 MEQ TABLET PO PRN ×3 (06:07→15:25)
[2018-02-27 06:45] LABS: Basophils % 0.2 % (0.0-0.8); Eosinophils # 0.2 10*3/uL (0.0-0.87); Eosinophils % 1.9 % (0.00-10.9); Hematocrit 26.5 VOL% (35.7-47.0); Hemoglobin 7.7 GM/DL (12.0-16.0); Immature Granulocytes Absolute 0.11 #; Lymphocytes # 1.4 10*3/uL (1.4-4.0); Lymphocytes % 12.7 % (21.3-54.2); Mean Corpuscular HGB Conc 29.1 GM/DL (32-36); Mean Corpuscular Hemoglobin 23 PG (27-34); Mean Corpuscular Volume 80.5 FL (87-102); Mean Platelet Volume 11.5 FL (9.6-12.0); Monocytes # 1.1 10*3/uL (0.11-0.8); Monocytes % 9.4 % (1.7-12.7); NRBC # 0.17 10*3/uL; Neutrophils # 8.4 10*3/uL (1.4-7.4); Neutrophils % 74.8 % (38.7-73.9); Platelet Count 155 T/CUMM (130-400); Red Blood Count 3.29 MC/CUMM (3.8-5.5); Red Cell Distribution Width 19.6 % (9.3-17.3); White Blood Count 11.2 T/CUMM (4-12)
[2018-02-27 06:56] LABS: Calcium 8.5 MG/DL (8.5-10.1); Osmolality,Calculated 273.1 MOS/KG (273-304); Potassium 3.4 MMOL/L (3.5-5.1)
[2018-02-27] MEDS: SPIRONOLACTONE 25 MG TABLET PO SCH (08:47)
[2018-02-27] MEDS: ROSUVASTATIN 20 MG TABLET PO SCH (08:47)
[2018-02-27] MEDS: POTASSIUM CHLORIDE 20 MEQ TABLET PO SCH (08:47)
[2018-02-27] MEDS: CARVEDILOL 12.5 MG TABLET PO SCH ×2 (08:47→16:54)
[2018-02-27] MEDS: FUROSEMIDE 40 MG/4 ML VIAL IV SCH ×2 (08:55→16:54)
[2018-02-27] MEDS: PANTOPRAZOLE 40 MG VIAL IV SCH ×2 (08:55→21:56)
[2018-02-27] MEDS ORDERED: IRON SUCROSE 300 MG in SODIUM CHLORIDE 0.9% 100 ML IV ONE (09:00)
[2018-02-27] MEDS: FOLIC ACID 1 MG TABLET PO SCH (21:56)
[2018-02-27] MEDS: MONTELUKAST 10 MG TABLET PO SCH (21:56)
[2018-02-28] MEDS: GABAPENTIN 300 MG CAPSULE PO PRN ×4 (00:59→21:53)
[2018-02-28] MEDS: ALBUTEROL/IPRATROPIUM 3 ML NEB RESP TX SCH ×7 (01:01→23:10)
[2018-02-28 04:58] LABS: Basophils # 0.1 10*3/uL (0.0-0.2); Basophils % 0.5 % (0.0-0.8); Eosinophils # 0.6 10*3/uL (0.0-0.87); Eosinophils % 5.3 % (0.00-10.9); Hematocrit 26.7 VOL% (35.7-47.0); Hemoglobin 7.9 GM/DL (12.0-16.0); Immature Granulocytes Absolute 0.21 #; Lymphocytes # 1.8 10*3/uL (1.4-4.0); Lymphocytes % 16.8 % (21.3-54.2); Mean Corpuscular HGB Conc 29.6 GM/DL (32-36); Mean Corpuscular Hemoglobin 24 PG (27-34); Mean Corpuscular Volume 81.9 FL (87-102); Monocytes % 9.2 % (1.7-12.7); NRBC # 0.17 10*3/uL; Neutrophils # 7.1 10*3/uL (1.4-7.4); Neutrophils % 66.2 % (38.7-73.9); Platelet Count 144 T/CUMM (130-400); Red Blood Count 3.26 MC/CUMM (3.8-5.5); Red Cell Distribution Width 20.5 % (9.3-17.3); White Blood Count 10.7 T/CUMM (4-12)
[2018-02-28 05:18] LABS: Calcium 8.8 MG/DL (8.5-10.1); Potassium 3.6 MMOL/L (3.5-5.1)
[2018-02-28 05:19] LABS: % Iron Saturation 32.6 % (18-50)
[2018-02-28] MEDS: LEVOTHYROXINE 88 MCG TABLET PO SCH (06:11)
[2018-02-28] MEDS ORDERED: ONDANSETRON 4 MG/2 ML VIAL ONE (09:00)
[2018-02-28] MEDS ORDERED: LIDOCAINE 2% 5 ML VIAL ONE (09:00)
[2018-02-28] MEDS ORDERED: PROPOFOL 200 MG/20 ML VIAL IV ONE (09:00)
[2018-02-28] MEDS ORDERED: BISACODYL 5 MG TABLET PO ONE (12:00)
[2018-02-28] MEDS: ROSUVASTATIN 20 MG TABLET PO SCH (12:56)
[2018-02-28] MEDS: POTASSIUM CHLORIDE 20 MEQ TABLET PO SCH (12:56)
[2018-02-28] MEDS: SPIRONOLACTONE 25 MG TABLET PO SCH (12:56)
[2018-02-28] MEDS: FUROSEMIDE 40 MG/4 ML VIAL IV SCH ×2 (12:57→16:51)
[2018-02-28] MEDS: CARVEDILOL 12.5 MG TABLET PO SCH ×2 (12:57→16:54)
[2018-02-28] MEDS: PANTOPRAZOLE 40 MG VIAL IV SCH ×2 (13:00→21:53)
[2018-02-28] MEDS ORDERED: POLYETHYLENE GLYCOL POWDER 255 GM BOTTLE PO ONE (18:00)
[2018-02-28] MEDS: FOLIC ACID 1 MG TABLET PO SCH (21:53)
[2018-02-28] MEDS: MONTELUKAST 10 MG TABLET PO SCH (21:53)
[2018-03-01] MEDS: ALBUTEROL/IPRATROPIUM 3 ML NEB RESP TX SCH ×4 (03:28→14:35)
[2018-03-01 05:40] LABS: Basophils % 0.4 % (0.0-0.8); Eosinophils # 0.6 10*3/uL (0.0-0.87); Eosinophils % 5.3 % (0.00-10.9); Hematocrit 31.7 VOL% (35.7-47.0); Hemoglobin 9.3 GM/DL (12.0-16.0); Immature Granulocytes % 1.6 %; Immature Granulocytes Absolute 0.17 #; Lymphocytes # 1.9 10*3/uL (1.4-4.0); Lymphocytes % 17.3 % (21.3-54.2); Mean Corpuscular HGB Conc 29.3 GM/DL (32-36); Mean Corpuscular Hemoglobin 24 PG (27-34); Mean Corpuscular Volume 82.8 FL (87-102); Mean Platelet Volume 11.2 FL (9.6-12.0); Monocytes % 9.6 % (1.7-12.7); NRBC # 0.07 10*3/uL; Neutrophils # 7.1 10*3/uL (1.4-7.4); Neutrophils % 65.8 % (38.7-73.9); Platelet Count 191 T/CUMM (130-400); Red Blood Count 3.83 MC/CUMM (3.8-5.5); Red Cell Distribution Width 21.9 % (9.3-17.3); White Blood Count 10.8 T/CUMM (4-12)
[2018-03-01 05:59] LABS: Osmolality,Calculated 268.2 MOS/KG (273-304); Potassium 2.7 MMOL/L (3.5-5.1)
[2018-03-01] MEDS: POTASSIUM CHLORIDE RIDER 10 MEQ in PREMIX 1 EACH IV PRN ×4 (06:38→10:21)
[2018-03-01] MEDS ORDERED: POTASSIUM CHLORIDE 20 MEQ TABLET PO ONE (10:03)
[2018-03-01] MEDS ORDERED: LIDOCAINE 2% 5 ML VIAL ONE (11:39)
[2018-03-01] MEDS ORDERED: PROPOFOL 200 MG/20 ML VIAL IV ONE (11:39)
[2018-03-01] MEDS: FUROSEMIDE 40 MG/4 ML VIAL IV SCH (12:25)
[2018-03-01] MEDS: PANTOPRAZOLE 40 MG VIAL IV SCH (12:25)
[2018-03-01 12:51] VITALS: BP 172/074
[2018-03-01] MEDS: CARVEDILOL 12.5 MG TABLET PO SCH (13:29)
[2018-03-01] MEDS: LEVOTHYROXINE 88 MCG TABLET PO SCH (13:29)
[2018-03-01] MEDS: POTASSIUM CHLORIDE 20 MEQ TABLET PO SCH (13:32)
[2018-03-01] MEDS: SPIRONOLACTONE 25 MG TABLET PO SCH (13:32)
[2018-03-01] MEDS: ROSUVASTATIN 20 MG TABLET PO SCH (13:32)
== END 2018-03-01 15:35 | disposition home or self-care (01) | DRG 377 ==
LOC: N.TELES 17:08 → SUATTDRO 17:08
PROVIDERS: ADMIT Internal Medicine; ATTEND Hospitalist

== ENCOUNTER 2018-03-12 19:50 | Inpatient (IN) ==
[2018-03-12] MEDS ORDERED: CEFEPIME 2,000 MG in SODIUM CHLORIDE 0.9% 100 ML IV STA (20:27)
[2018-03-12] MEDS ORDERED: VANCOMYCIN INJ 1,000 MG in SODIUM CHLORIDE 0.9% 250 ML IV STA (20:27)
[2018-03-12 20:42] LABS: Allen Test Positive; Pt O2 Delivery Device Ventilator
[2018-03-12 20:43] LABS: ABG Base Excess -5.4 MMOL/L (-2.5-2.5); ABG Oxygen Saturation 99.4 % (95-100); ABG PCO2 52.3 MM HG (35-48); ABG PH 7.241 (7.35-7.45); ABG TCO2 20.6 MMOL/L (23-27)
[2018-03-12 21:17] LABS: Albumin 3.2 G/DL (3.4-5.0); Bilirubin,Total 1.8 MG/DL (0.2-1.0); Calcium 8.4 MG/DL (8.5-10.1); Osmolality,Calculated 281.8 MOS/KG (273-304); Potassium 4.6 MMOL/L (3.5-5.1); Total Protein 7.2 G/DL (6.4-8.3)
[2018-03-12 21:32] LABS: Apearance,Urine CLEAR (Clear); Bilirubin,Urine Negative (Negative); Blood, Urine Negative (Negative); Glucose,Urine (UA) 150 mg/dL (Negative); Hyaline Casts,Urine 4 /LPF (0-3); Ketones,Urine Negative (Negative); Mucus,Urine Occasional /LPF (Occasional); Nitrite,Urine Negative (Negative); Protein,Urine 100 MG/DL; RBC,Urine <1 /HPF (0-4); Urine Color Yellow (Yellow); Urine Specific Gravity 1.006 (1.001-1.035); Urine Urobilinogen < 2.0 EU/DL (0.2-1.0); WBC,Urine 3 /HPF (0-6)
[2018-03-12 21:47] LABS: Basophils % 0.2 % (0.0-0.8); Hematocrit 39.4 VOL% (35.7-47.0); Hemoglobin 11.3 GM/DL (12.0-16.0); Immature Granulocytes % 0.6 %; Immature Granulocytes Absolute 0.11 #; Lymphocytes # 0.6 10*3/uL (1.4-4.0); Lymphocytes % 3.2 % (21.3-54.2); Mean Corpuscular HGB Conc 28.7 GM/DL (32-36); Mean Corpuscular Hemoglobin 26 PG (27-34); Mean Corpuscular Volume 89.1 FL (87-102); Mean Platelet Volume 10.9 FL (9.6-12.0); Monocytes # 0.5 10*3/uL (0.11-0.8); Monocytes % 2.9 % (1.7-12.7); Neutrophils # 16.7 10*3/uL (1.4-7.4); Neutrophils % 93.1 % (38.7-73.9); Platelet Count 222 T/CUMM (130-400); Red Blood Count 4.42 MC/CUMM (3.8-5.5); Red Cell Distribution Width 22.8 % (9.3-17.3); White Blood Count 17.9 T/CUMM (4-12)
[2018-03-12] MEDS ORDERED: PROPOFOL 1,000 MG/100 ML BOTTLE IV ONE (22:32)
[2018-03-12 22:34] LABS: ABG Base Excess -5.2 MMOL/L (-2.5-2.5); ABG HCO3 20.2 MMOL/L (20-26); ABG Oxygen Saturation 98.9 % (95-100); ABG PCO2 42.9 MM HG (35-48); ABG TCO2 19.3 MMOL/L (23-27); Allen Test Positive; Pt O2 Delivery Device Ventilator
[2018-03-12] MEDS: PROPOFOL 1,000 MG/100 ML BOTTLE IV SCH (22:45)
[2018-03-12 22:54] LABS: Band Neutrophils 11 % (0-10); Lymphocytes 3 % (20-55); Segmented Neutrophils 85 % (50-85); Total Cells Counted 100
[2018-03-12 22:55] LABS: Anisocytosis 1+; Microcytosis Slight; Platelet Estimate Normal; Tear Drop Cells Few
[2018-03-12] MEDS ORDERED: ALBUTEROL/IPRATROPIUM 3 ML NEB RESP TX PRN (23:00)
[2018-03-12] MEDS ORDERED: ALBUTEROL 2.5 MG/3 ML NEB RESP TX PRN (23:00)
[2018-03-12] MEDS: ALBUTEROL/IPRATROPIUM 3 ML NEB RESP TX SCH (23:56)
[2018-03-13 01:44] LABS: Lactic Acid 2.8 MMOL/L (0.4-2.0)
[2018-03-13] MEDS: ALBUTEROL/IPRATROPIUM 3 ML NEB RESP TX SCH ×6 (03:05→23:19)
[2018-03-13 04:20] LABS: ABG Base Excess -2.4 MMOL/L (-2.5-2.5); ABG HCO3 22.2 MMOL/L (20-26); ABG Oxygen Saturation 94.6 % (95-100); ABG PCO2 37.1 MM HG (35-48); ABG PH 7.394 (7.35-7.45); ABG PO2 81.2 MM HG (80-95); ABG TCO2 23.3 MMOL/L (23-27); Allen Test Positive; Pt O2 Delivery Device Ventilator
[2018-03-13 05:44] LABS: Albumin 2.7 G/DL (3.4-5.0); Bilirubin,Total 1.6 MG/DL (0.2-1.0); Calcium 8.6 MG/DL (8.5-10.1); Osmolality,Calculated 284.4 MOS/KG (273-304); Potassium 4.1 MMOL/L (3.5-5.1); Total Protein 6.5 G/DL (6.4-8.3)
[2018-03-13] MEDS: PROPOFOL 1,000 MG/100 ML BOTTLE IV SCH ×4 (06:05→23:28)
[2018-03-13 06:23] LABS: Lactic Acid 2.3 MMOL/L (0.4-2.0)
[2018-03-13] MEDS: FUROSEMIDE 40 MG/4 ML VIAL IV SCH ×2 (08:30→16:31)
[2018-03-13] MEDS: PIPERACILLIN/TAZOBACTAM 3,375 MG in SODIUM CHLORIDE 0.9% 100 ML IV SCH ×4 (08:30→23:29)
[2018-03-13] MEDS: PANTOPRAZOLE 40 MG VIAL IV SCH (08:30)
[2018-03-13] MEDS: VANCOMYCIN INJ 1,000 MG in SODIUM CHLORIDE 0.9% 250 ML IV SCH (13:48)
[2018-03-13] MEDS: hydrALAZINE 20 MG/1 ML VIAL IV PRN (18:53)
[2018-03-13] MEDS: MONTELUKAST 10 MG TABLET PO SCH (20:25)
[2018-03-13] MEDS: METOPROLOL TARTRATE 5 MG/5 ML VIAL IV PRN (21:43)
[2018-03-13] MEDS: MEPERIDINE 25 MG/1 ML VIAL IV PRN (23:27)
[2018-03-14] MEDS: ALBUTEROL/IPRATROPIUM 3 ML NEB RESP TX SCH ×6 (03:49→23:07)
[2018-03-14] MEDS: METOPROLOL TARTRATE 5 MG/5 ML VIAL IV PRN (04:03)
[2018-03-14] MEDS: PROPOFOL 1,000 MG/100 ML BOTTLE IV SCH ×4 (04:03→20:10)
[2018-03-14] MEDS: LEVOTHYROXINE 88 MCG TABLET PO SCH (06:13)
[2018-03-14] MEDS: FUROSEMIDE 40 MG/4 ML VIAL IV SCH ×2 (08:40→16:16)
[2018-03-14] MEDS: PANTOPRAZOLE 40 MG VIAL IV SCH (08:43)
[2018-03-14] MEDS: PIPERACILLIN/TAZOBACTAM 3,375 MG in SODIUM CHLORIDE 0.9% 100 ML IV SCH ×3 (08:44→23:15)
[2018-03-14 08:51] LABS: Calcium 8.4 MG/DL (8.5-10.1); Osmolality,Calculated 287.3 MOS/KG (273-304); Potassium 3.2 MMOL/L (3.5-5.1)
[2018-03-14] MEDS: hydrALAZINE 20 MG/1 ML VIAL IV PRN ×2 (09:05→15:31)
[2018-03-14] MEDS ORDERED: METOPROLOL TARTRATE 25 MG TABLET PO SCH (09:30)
[2018-03-14 09:48] LABS: Mean Corpuscular Hemoglobin 26 PG (27-34)
[2018-03-14 09:56] LABS: Basophils % 0.4 % (0.0-0.8); Eosinophils % 0.5 % (0.00-10.9); Hematocrit 30.7 VOL% (35.7-47.0); Immature Granulocytes % 0.4 %; Immature Granulocytes Absolute 0.03 #; Lymphocytes # 1.1 10*3/uL (1.4-4.0); Lymphocytes % 14.3 % (21.3-54.2); Mean Corpuscular HGB Conc 29.6 GM/DL (32-36); Mean Corpuscular Volume 87.2 FL (87-102); Mean Platelet Volume 11.3 FL (9.6-12.0); Monocytes # 0.8 10*3/uL (0.11-0.8); Monocytes % 10.2 % (1.7-12.7); Neutrophils # 5.9 10*3/uL (1.4-7.4); Neutrophils % 74.2 % (38.7-73.9); Red Cell Distribution Width 23.4 % (9.3-17.3)
[2018-03-14 09:57] LABS: Hemoglobin 9.1 GM/DL (12.0-16.0); Platelet Count 159 T/CUMM (130-400); Red Blood Count 3.52 MC/CUMM (3.8-5.5)
[2018-03-14 10:28] LABS: Giant Platelets Few; Hypochromasia 1+; Microcytosis Slight; Ovalocytes Slight; Platelet Estimate Normal
[2018-03-14] MEDS: POTASSIUM CHLORIDE 20 MEQ/15 ML UDCUP PER TUBE PRN ×4 (11:16→18:04)
[2018-03-14] MEDS: MEPERIDINE 25 MG/1 ML VIAL IV PRN ×2 (11:16→15:25)
[2018-03-14] MEDS ORDERED: amLODIPine 2.5 MG TABLET PO ONE (17:10)
[2018-03-14] MEDS ORDERED: GABAPENTIN 300 MG CAPSULE PO PRN (17:28)
[2018-03-14] MEDS: MONTELUKAST 10 MG TABLET PO SCH (20:09)
[2018-03-14] MEDS ORDERED: CARVEDILOL 12.5 MG TABLET PO SCH (21:00)
[2018-03-14] MEDS ORDERED: CARVEDILOL 3.125 MG TABLET PO SCH (21:00)
[2018-03-15] MEDS: PROPOFOL 1,000 MG/100 ML BOTTLE IV SCH ×4 (00:24→23:58)
[2018-03-15] MEDS: POTASSIUM CHLORIDE 20 MEQ/15 ML UDCUP PER TUBE PRN ×5 (01:21→17:20)
[2018-03-15 03:18] LABS: ABG Base Excess 3.4 MMOL/L (-2.5-2.5); ABG HCO3 27.5 MMOL/L (20-26); ABG PCO2 36.7 MM HG (35-48); ABG PH 7.474 (7.35-7.45); ABG TCO2 24.4 MMOL/L (23-27)
[2018-03-15] MEDS: ALBUTEROL/IPRATROPIUM 3 ML NEB RESP TX SCH ×6 (03:22→23:22)
[2018-03-15 05:00] LABS: Calcium 9.1 MG/DL (8.5-10.1); Osmolality,Calculated 295.8 MOS/KG (273-304); Potassium 4.3 MMOL/L (3.5-5.1)
[2018-03-15 05:05] LABS: Albumin 3.1 G/DL (3.4-5.0); Bilirubin,Direct 0.47 MG/DL (0.0-0.20); Bilirubin,Indirect 1.1 MG/DL (0.0-1.0); Bilirubin,Total 1.6 MG/DL (0.2-1.0); Total Protein 7.7 G/DL (6.4-8.3)
[2018-03-15 05:25] LABS: Basophils % 0.4 % (0.0-0.8); Eosinophils # 0.3 10*3/uL (0.0-0.87); Eosinophils % 3.2 % (0.00-10.9); Hematocrit 34.6 VOL% (35.7-47.0); Hemoglobin 10.4 GM/DL (12.0-16.0); Immature Granulocytes % 0.5 %; Immature Granulocytes Absolute 0.05 #; Lymphocytes # 1.3 10*3/uL (1.4-4.0); Lymphocytes % 13.4 % (21.3-54.2); Mean Corpuscular HGB Conc 30.1 GM/DL (32-36); Mean Corpuscular Hemoglobin 26 PG (27-34); Mean Corpuscular Volume 86.9 FL (87-102); Mean Platelet Volume 10.7 FL (9.6-12.0); Monocytes # 1.1 10*3/uL (0.11-0.8); Monocytes % 11.4 % (1.7-12.7); Neutrophils % 71.1 % (38.7-73.9); Platelet Count 212 T/CUMM (130-400); Red Blood Count 3.98 MC/CUMM (3.8-5.5); Red Cell Distribution Width 23.4 % (9.3-17.3); White Blood Count 9.8 T/CUMM (4-12)
[2018-03-15] MEDS: LEVOTHYROXINE 88 MCG TABLET PO SCH ×2 (05:36→06:06)
[2018-03-15 05:58] LABS: Eosinophils 7 % (0-10); Hypochromasia 1+; Lymphocytes 12 % (20-55); Ovalocytes Slight; Platelet Estimate Adequate; Segmented Neutrophils 69 % (50-85); Total Cells Counted 100
[2018-03-15 05:59] LABS: Microcytosis Slight
[2018-03-15] MEDS: FUROSEMIDE 40 MG/4 ML VIAL IV SCH ×2 (08:13→15:13)
[2018-03-15] MEDS: NEBIVOLOL 5 MG TABLET PO SCH ×2 (08:13→20:32)
[2018-03-15] MEDS: MULTIVITAMIN (CENTRUM) TABLET PO SCH (08:14)
[2018-03-15] MEDS: CHOLECALCIFEROL 1,000 UNIT TABLET PO SCH (08:14)
[2018-03-15] MEDS: amLODIPine 5 MG TABLET PO SCH (08:14)
[2018-03-15] MEDS: METOPROLOL TARTRATE 5 MG/5 ML VIAL IV PRN ×2 (08:16→13:58)
[2018-03-15] MEDS: PANTOPRAZOLE 40 MG VIAL IV SCH (08:19)
[2018-03-15] MEDS: MAGNESIUM OXIDE 400 MG TABLET PO SCH (08:21)
[2018-03-15] MEDS: PIPERACILLIN/TAZOBACTAM 3,375 MG in SODIUM CHLORIDE 0.9% 100 ML IV SCH ×3 (09:28→23:58)
[2018-03-15] MEDS: VANCOMYCIN INJ 1,000 MG in SODIUM CHLORIDE 0.9% 250 ML IV SCH (15:06)
[2018-03-15] MEDS: MONTELUKAST 10 MG TABLET PO SCH (20:32)
[2018-03-16 00:42] LABS: INR 1.2; PT Patient Result 12.4 SECS; Partial Thromboplastin Time 24.3 SECS (0-40)
[2018-03-16 00:51] LABS: Calcium 9.3 MG/DL (8.5-10.1); Osmolality,Calculated 298.7 MOS/KG (273-304); Potassium 3.6 MMOL/L (3.5-5.1)
[2018-03-16 01:15] LABS: Basophils % 0.4 % (0.0-0.8); Eosinophils # 0.5 10*3/uL (0.0-0.87); Eosinophils % 5.6 % (0.00-10.9); Hematocrit 35.4 VOL% (35.7-47.0); Hemoglobin 10.4 GM/DL (12.0-16.0); Immature Granulocytes % 0.5 %; Immature Granulocytes Absolute 0.04 #; Lymphocytes # 1.2 10*3/uL (1.4-4.0); Mean Corpuscular HGB Conc 29.4 GM/DL (32-36); Mean Corpuscular Hemoglobin 26 PG (27-34); Mean Corpuscular Volume 88.9 FL (87-102); Mean Platelet Volume 11.1 FL (9.6-12.0); Monocytes % 11.2 % (1.7-12.7); Neutrophils # 5.9 10*3/uL (1.4-7.4); Neutrophils % 68.3 % (38.7-73.9); Platelet Count 208 T/CUMM (130-400); Red Blood Count 3.98 MC/CUMM (3.8-5.5); Red Cell Distribution Width 22.7 % (9.3-17.3); White Blood Count 8.6 T/CUMM (4-12)
[2018-03-16 01:28] LABS: Eosinophils 8 % (0-10); Lymphocytes 18 % (20-55); Platelet Estimate Normal; Segmented Neutrophils 72 % (50-85); Total Cells Counted 100
[2018-03-16] MEDS: ALBUTEROL/IPRATROPIUM 3 ML NEB RESP TX SCH ×5 (03:10→20:50)
[2018-03-16 03:14] LABS: ABG Base Excess 5.2 MMOL/L (-2.5-2.5); ABG HCO3 29.1 MMOL/L (20-26); ABG PH 7.505 (7.35-7.45); ABG TCO2 25.5 MMOL/L (23-27); Pt O2 Delivery Device Ventilator
[2018-03-16] MEDS: POTASSIUM CHLORIDE 20 MEQ/15 ML UDCUP PER TUBE PRN ×2 (04:04→06:20)
[2018-03-16] MEDS: LEVOTHYROXINE 88 MCG TABLET PO SCH ×2 (05:34)
[2018-03-16] MEDS: PROPOFOL 1,000 MG/100 ML BOTTLE IV SCH ×2 (06:38→15:35)
[2018-03-16] MEDS ORDERED: FUROSEMIDE 40 MG/4 ML VIAL IV SCH (09:00)
[2018-03-16] MEDS: PIPERACILLIN/TAZOBACTAM 3,375 MG in SODIUM CHLORIDE 0.9% 100 ML IV SCH ×2 (09:55→16:29)
[2018-03-16] MEDS: MAGNESIUM OXIDE 400 MG TABLET PO SCH (09:56)
[2018-03-16] MEDS: NEBIVOLOL 5 MG TABLET PO SCH (09:56)
[2018-03-16] MEDS: CHOLECALCIFEROL 1,000 UNIT TABLET PO SCH (09:56)
[2018-03-16] MEDS: MULTIVITAMIN (CENTRUM) TABLET PO SCH (09:56)
[2018-03-16] MEDS: amLODIPine 5 MG TABLET PO SCH (09:56)
[2018-03-16] MEDS: PANTOPRAZOLE 40 MG VIAL IV SCH (09:57)
[2018-03-16] MEDS ORDERED: NEBIVOLOL 5 MG TABLET PO ONE (11:32)
[2018-03-16] MEDS: hydrALAZINE 20 MG/1 ML VIAL IV PRN (11:51)
[2018-03-16] MEDS: ASPIRIN CHEW 81 MG TABLET PO SCH (11:54)
[2018-03-16] MEDS: MONTELUKAST 10 MG TABLET PO SCH (20:40)
[2018-03-16] MEDS: MEPERIDINE 25 MG/1 ML VIAL IV PRN (20:40)
[2018-03-16] MEDS: NEBIVOLOL 10 MG TABLET PO SCH (20:40)
[2018-03-17] MEDS: ALBUTEROL/IPRATROPIUM 3 ML NEB RESP TX SCH ×4 (00:03→11:00)
[2018-03-17] MEDS: PIPERACILLIN/TAZOBACTAM 3,375 MG in SODIUM CHLORIDE 0.9% 100 ML IV SCH (00:26)
[2018-03-17] MEDS: PROPOFOL 1,000 MG/100 ML BOTTLE IV SCH ×2 (00:26→09:02)
[2018-03-17 04:20] LABS: ABG Base Excess 2.4 MMOL/L (-2.5-2.5); ABG HCO3 26.5 MMOL/L (20-26); ABG PCO2 38.2 MM HG (35-48); ABG PH 7.448 (7.35-7.45); ABG TCO2 23.9 MMOL/L (23-27); Pt O2 Delivery Device Ventilator
[2018-03-17] MEDS ORDERED: SODIUM CHLORIDE 0.9% 500 ML IV ONE ×2 (04:35→11:43)
[2018-03-17 05:52] LABS: Calcium 9.1 MG/DL (8.5-10.1); Osmolality,Calculated 312.4 MOS/KG (273-304); Potassium 3.9 MMOL/L (3.5-5.1)
[2018-03-17 05:53] LABS: Prealbumin 23.6 MG/DL (20-40)
[2018-03-17] MEDS: LEVOTHYROXINE 88 MCG TABLET PO SCH (05:57)
[2018-03-17] MEDS: MAGNESIUM OXIDE 400 MG TABLET PO SCH (09:03)
[2018-03-17] MEDS: CHOLECALCIFEROL 1,000 UNIT TABLET PO SCH (09:03)
[2018-03-17] MEDS: amLODIPine 5 MG TABLET PO SCH (09:03)
[2018-03-17] MEDS: ASPIRIN CHEW 81 MG TABLET PO SCH (09:03)
[2018-03-17] MEDS: NEBIVOLOL 10 MG TABLET PO SCH (09:03)
[2018-03-17] MEDS: PANTOPRAZOLE 40 MG VIAL IV SCH (09:03)
[2018-03-17] MEDS: MULTIVITAMIN (CENTRUM) TABLET PO SCH (09:03)
[2018-03-17] MEDS ORDERED: MIDAZOLAM 100 MG in SODIUM CHLORIDE 0.9% 80 ML IV PRN (11:52)
[2018-03-17] MEDS ORDERED: PIPERACILLIN/TAZOBACTAM 3,375 MG in SODIUM CHLORIDE 0.9% 100 ML IV SCH (12:00)
[2018-03-17 15:03] VITALS: BP 133/70
== END 2018-03-17 15:52 | DRG 870 ==
LOC: EDBD → EDUNIT# → N.ED 19:50 → N.EDINP 21:35 → SUATTDRO 21:35 → N.CC 23:07
PROVIDERS: ADMIT Internal Medicine; ATTEND Family Medicine

== ENCOUNTER 2019-01-08 10:03 | Inpatient (IN) ==
[2019-01-08] MEDS ORDERED: ASPIRIN 325 MG TABLET PO STA (10:30)
[2019-01-08] MEDS ORDERED: ASPIRIN 325 MG TABLET ONE (10:46)
[2019-01-08 11:05] LABS: Basophils % 0.3 % (0.0-0.8); Eosinophils # 0.1 10*3/uL (0.0-0.87); Eosinophils % 1.5 % (0.00-10.9); Hematocrit 20.8 VOL% (35.7-47.0); Immature Granulocytes % 1.2 %; Immature Granulocytes Absolute 0.07 #; Lymphocytes # 0.9 10*3/uL (1.4-4.0); Lymphocytes % 16.2 % (21.3-54.2); Mean Corpuscular HGB Conc 27.9 GM/DL (32-36); Mean Corpuscular Volume 98.6 FL (87-102); Mean Platelet Volume 11.5 FL (9.6-12.0); Monocytes % 9.3 % (1.7-12.7); NRBC # 0.03 10*3/uL; Neutrophils % 71.5 % (38.7-73.9); Platelet Count 121 T/CUMM (130-400); Red Blood Count 2.11 MC/CUMM (3.8-5.5); Red Cell Distribution Width 18.7 % (9.3-17.3); White Blood Count 5.8 T/CUMM (4-12)
[2019-01-08 11:06] LABS: Hemoglobin 5.8 GM/DL (12.0-16.0)
[2019-01-08 11:12] LABS: INR 1.1; PT Patient Result 12.1 SECS
[2019-01-08 11:33] LABS: Albumin 3.2 G/DL (3.4-5.0); Bilirubin,Total 1.3 MG/DL (0.2-1.0); Calcium 8.3 MG/DL (8.5-10.1); Osmolality,Calculated 286.8 MOS/KG (273-304); Total Protein 6.5 G/DL (6.4-8.3)
[2019-01-08 11:44] LABS: Hypochromasia 2+; Macrocytosis Slight; Ovalocytes Slight; Platelet Estimate Adequate; Polychromasia Slight
[2019-01-08] MEDS ORDERED: ZALEPLON 5 MG CAPSULE PO PRN (13:07)
[2019-01-08] MEDS ORDERED: ACETAMINOPHEN 325 MG TABLET PO PRN (13:07)
[2019-01-08] MEDS ORDERED: CYANOCOBALAMIN 1000 MCG/1 ML VIAL IM ONE (13:18)
[2019-01-08] MEDS ORDERED: SODIUM CHLORIDE 0.9% 1,000 ML IV PRN (13:28)
[2019-01-08] MEDS: POTASSIUM CHLORIDE 20 MEQ TABLET PO PRN ×3 (15:37→20:52)
[2019-01-08] MEDS: ONDANSETRON 4 MG/2 ML VIAL IV PRN (20:08)
[2019-01-08] MEDS: GABAPENTIN 300 MG CAPSULE PO PRN (20:52)
[2019-01-08] MEDS: CARVEDILOL 25 MG TABLET PO SCH (20:52)
[2019-01-09 04:43] LABS: Basophils % 0.4 % (0.0-0.8); Eosinophils # 0.1 10*3/uL (0.0-0.87); Eosinophils % 2.4 % (0.00-10.9); Hematocrit 18.6 VOL% (35.7-47.0); Immature Granulocytes Absolute 0.05 #; Lymphocytes # 1.1 10*3/uL (1.4-4.0); Lymphocytes % 20.9 % (21.3-54.2); Mean Corpuscular Volume 99.5 FL (87-102); Monocytes % 10.8 % (1.7-12.7); Neutrophils % 64.5 % (38.7-73.9); Platelet Count 115 T/CUMM (130-400); Red Blood Count 1.87 MC/CUMM (3.8-5.5); Red Cell Distribution Width 18.8 % (9.3-17.3); White Blood Count 5.1 T/CUMM (4-12)
[2019-01-09 04:50] LABS: Hemoglobin 5.2 GM/DL (12.0-16.0)
[2019-01-09 05:08] LABS: Calcium 8.1 MG/DL (8.5-10.1); Osmolality,Calculated 283.4 MOS/KG (273-304)
[2019-01-09 05:18] LABS: Thyroid Stimulating Hormone 12.1 uIU/ml (0.358-3.74)
[2019-01-09 05:34] LABS: Anisocytosis 1+; Hypochromasia 1+; Microcytosis 1+; Polychromasia Few; Tear Drop Cells Few
[2019-01-09 05:35] LABS: Ovalocytes Slight
[2019-01-09 05:36] LABS: Platelet Estimate Adequate
[2019-01-09] MEDS: LEVOTHYROXINE 88 MCG TABLET PO SCH (06:36)
[2019-01-09] MEDS: PANTOPRAZOLE 40 MG TABLET PO SCH (09:38)
[2019-01-09] MEDS: CARVEDILOL 25 MG TABLET PO SCH ×2 (09:38→17:21)
[2019-01-09] MEDS: ATORVASTATIN 40 MG TABLET PO SCH (09:38)
[2019-01-09] MEDS: amLODIPine 5 MG TABLET PO SCH (09:38)
[2019-01-09] MEDS: NITROGLYCERIN 0.2 MG/HR PATCH TRANSDERM SCH ×2 (11:04→15:54)
[2019-01-09] MEDS: ONDANSETRON 4 MG/2 ML VIAL IV PRN ×3 (13:17→20:22)
[2019-01-09] MEDS ORDERED: ACETAMINOPHEN 325 MG TABLET PO ONE (15:34)
[2019-01-09] MEDS ORDERED: diphenhydrAMINE 50 MG/1 ML VIAL IV ONE (15:35)
[2019-01-09] MEDS ORDERED: methylPREDNISolone SOD SUC 125 MG/2 ML VIAL IV ONE (15:35)
[2019-01-09] MEDS: GABAPENTIN 300 MG CAPSULE PO PRN (18:32)
[2019-01-10 04:38] LABS: Basophils % 0.2 % (0.0-0.8); Hematocrit 31.5 VOL% (35.7-47.0); Hemoglobin 9.4 GM/DL (12.0-16.0); Immature Granulocytes % 1.9 %; Immature Granulocytes Absolute 0.16 #; Lymphocytes # 0.6 10*3/uL (1.4-4.0); Lymphocytes % 6.7 % (21.3-54.2); Mean Corpuscular HGB Conc 29.8 GM/DL (32-36); Mean Corpuscular Volume 94.3 FL (87-102); Mean Platelet Volume 11.9 FL (9.6-12.0); Monocytes % 4.8 % (1.7-12.7); NRBC # 0.03 10*3/uL; Neutrophils % 86.4 % (38.7-73.9); Platelet Count 111 T/CUMM (130-400); Red Blood Count 3.34 MC/CUMM (3.8-5.5); Red Cell Distribution Width 18.1 % (9.3-17.3); White Blood Count 8.3 T/CUMM (4-12)
[2019-01-10 04:49] LABS: Calcium 8.8 MG/DL (8.5-10.1); Osmolality,Calculated 295.5 MOS/KG (273-304)
[2019-01-10] MEDS: ONDANSETRON 4 MG/2 ML VIAL IV PRN (04:58)
[2019-01-10] MEDS ORDERED: LACTATED RINGERS 1,000 ML IV SCH (08:00)
[2019-01-10] MEDS ORDERED: PROPOFOL 200 MG/20 ML VIAL IV ONE (10:00)
[2019-01-10] MEDS ORDERED: LIDOCAINE 2% 5 ML VIAL ONE (10:00)
[2019-01-10] MEDS ORDERED: GLUCAGON 1 MG VIAL ONE (12:15)
[2019-01-10] MEDS: LEVOTHYROXINE 88 MCG TABLET PO SCH (13:17)
[2019-01-10] MEDS: PANTOPRAZOLE 40 MG TABLET PO SCH ×2 (13:17→20:36)
[2019-01-10] MEDS: amLODIPine 5 MG TABLET PO SCH (13:17)
[2019-01-10] MEDS: ATORVASTATIN 40 MG TABLET PO SCH (13:17)
[2019-01-10] MEDS: CARVEDILOL 25 MG TABLET PO SCH ×2 (13:17→17:34)
[2019-01-10] MEDS: NITROGLYCERIN 0.2 MG/HR PATCH TRANSDERM SCH (13:18)
[2019-01-10] MEDS ORDERED: amLODIPine 10 MG TABLET PO SCH (14:00)
[2019-01-10] MEDS: GABAPENTIN 300 MG CAPSULE PO PRN (17:34)
[2019-01-11 05:14] LABS: Basophils % 0.3 % (0.0-0.8); Eosinophils % 0.5 % (0.00-10.9); Hematocrit 27.7 VOL% (35.7-47.0); Hemoglobin 8.3 GM/DL (12.0-16.0); Immature Granulocytes % 1.4 %; Immature Granulocytes Absolute 0.11 #; Lymphocytes # 0.8 10*3/uL (1.4-4.0); Lymphocytes % 9.5 % (21.3-54.2); Mean Corpuscular Volume 94.9 FL (87-102); Mean Platelet Volume 12.5 FL (9.6-12.0); Monocytes % 10.1 % (1.7-12.7); NRBC # 0.03 10*3/uL; Neutrophils % 78.2 % (38.7-73.9); Platelet Count 103 T/CUMM (130-400); Red Blood Count 2.92 MC/CUMM (3.8-5.5); Red Cell Distribution Width 19.2 % (9.3-17.3); White Blood Count 7.9 T/CUMM (4-12)
[2019-01-11] MEDS: PANTOPRAZOLE 40 MG TABLET PO SCH (08:30)
[2019-01-11] MEDS: LEVOTHYROXINE 88 MCG TABLET PO SCH (08:30)
[2019-01-11] MEDS: ATORVASTATIN 40 MG TABLET PO SCH (08:30)
[2019-01-11] MEDS: CARVEDILOL 25 MG TABLET PO SCH (08:30)
[2019-01-11] MEDS: GABAPENTIN 300 MG CAPSULE PO PRN (08:36)
[2019-01-11] MEDS: NITROGLYCERIN 0.2 MG/HR PATCH TRANSDERM SCH (08:40)
[2019-01-11 11:41] VITALS: BP 137/81
== END 2019-01-11 15:22 | disposition home or self-care (01) | DRG 378 ==
LOC: N.ED 10:03 → N.EDINP 13:07 → N.2E 14:12
PROVIDERS: ADMIT Internal Medicine; ATTEND Internal Medicine